=== PATIENT | male | born 1955 | race Caucasian/White ===

== ENCOUNTER 2022-08-09 00:51 | Inpatient (IN) ==
[2022-08-09 01:44] LABS: BASOPHILS % (AUTO) 0.1 % (0.0-3.0); EOSINOPHILS % (AUTO) 0.3 % (0.0-7.0); HEMATOCRIT 33.7 % (42.0-52.0); HEMOGLOBIN 10.5 g/dl (14.0-18.0); IMMATURE GRANULOCYTE # (AUTO) 0.1 (0.0-1.0); IMMATURE GRANULOCYTE % (AUTO) 0.6 % (0.0-5.0); LYMPHOCYTES # (AUTO) 1.2 K/uL (0.60-3.4); LYMPHOCYTES % (AUTO) 9.9 (10.0-50.0); MEAN CORPUSCULAR HEMOGLOBIN 29.6 pg (27.0-31.0); MEAN CORPUSCULAR HGB CONC 31.2 (31.8-35.4); MEAN CORPUSCULAR VOLUME 94.9 fl (80.0-94.0); MONOCYTES # (AUTO) 0.6 K/uL (0.4-2.0); MONOCYTES % (AUTO) 4.7 (0-10); NEUTROPHILS # (AUTO) 10.5 K/ul (2.0-6.9); NEUTROPHILS % (AUTO) 84.4 % (42.2-75.2); PLATELET COUNT 193 10^3/uL (140-440); RDW COEFFICIENT OF VARIATION 14.3 % (11.6-14.8); RED BLOOD COUNT 3.55 10^6/ul (4.70-6.10); WHITE BLOOD COUNT 12.49 K/ul (4.2-10.2)
[2022-08-09 01:54] LABS: ABG O2 HGB 94.9 % (95-100); COHb 3.1 (0.5-1.5); HCO3 41.2 (21-28); TCO2 42.6 (19-24); sO2 98.9 % (94-98); tHb 10.9 g/dl (11.7-17.4)
[2022-08-09 01:55] LABS: ABG PH 7.56 (7.35-7.45)
[2022-08-09 01:55] LABS: ALANINE AMINOTRANSFERASE 63.1 U/L (0-50); ALBUMIN 3.46 g/dL (3.5-5.0); ALKALINE PHOSPHATASE 68.6 U/L (56-119); ASPARTATE AMINO TRANSFERASE 44.3 U/L (17-59); BILIRUBIN,TOTAL 0.77 mg/dL (0.2-1.3); BLOOD UREA NITROGEN 27.8 mg/dL (9-20); CALCIUM 8.89 mg/dL (8.4-10.2); CARBON DIOXIDE 39.4 mmol/L (22-30.0); CHLORIDE 100.6 mmol/L (98-107); CREATINE KINASE 28.4 U/L (55-170); CREATININE 0.76 mg/dL (0.60-1.10); POTASSIUM 3.99 mmol/L (3.5-5.1); SODIUM 139.9 mmol/L (134.5-145); TOTAL PROTEIN 6.31 g/dL (6.3-8.2)
[2022-08-09 02:06] LABS: TROPONIN I 0.027 ng/ml (0.0000-0.120)
--- NOTE | 2022-08-09 02:46 | ED.PDOC ---
General ED Provider: Dr. AMANDA CORRAL Chief Complaint: Altered Mental Status Stated Complaint: Patient is a 67 year old male who has a history of stroke who was brought to the Er by EMS with acute mental status changes. He was seen at [facility] by [facility] two days ago and diagnosed with UTI started on antibiotics states he took his first dose today. He has a suprapubic catheter in place. The suprapubic catheter was changed 2 weeks ago. It is not draining a this time. Time Seen by Provider: 08/09/22 01:06 Mode of Arrival: Ambulance Information Source: Patient and EMT Primary Care Provider: ALYSSA ARIAS Nursing and Triage Documentation Reviewed and Agree: Yes Does patient meet sepsis criteria?: No System Inflammatory Response Syndrome: Not Applicable Sepsis Protocol: For patient's 13 years and over: Temp is 96.8 and below OR 101 and greater Pulse >90 BPM Resp >20/minute Acutely Altered Mental Status Are patient's symptoms suggestive of a new infection, such as: -Pneumonia -Skin, Soft Tissue -Endocarditis -UTI -Bone, Joint Infection -Implantable Device -Acute Abdominal Infection -Wound Infection -Meningitis -Blood Stream Catheter Infection -Unknown Review of Systems Review Of Systems Constitutional: Reports No symptoms Eyes: Reports No symptoms Ears, Nose, Mouth, Throat: Reports No symptoms Respiratory: Reports No symptoms Cardiac: Reports No symptoms GI: Reports No symptoms Neurological: Reports Anxiety All Other Systems: Reviewed and Negative [facility] Medical History (Updated 08/09/22 @ 05:00 by AMANDA CORRAL MD) Acute anxiety Acute UTI Aphasia as late effect of stroke COPD (chronic obstructive pulmonary disease) CVA (cerebral vascular accident) Falls HTN (hypertension) Hyperlipidemia Suprapubic catheter Social History (Updated 08/09/22 @ 04:59 by AMANDA CORRAL MD) Smoking and tobacco status: Current some day smoker Quit status: considering quitting Substance use type: does not use Household members: none Marital status: S SINGLE Physical Exam Physical Exam Appearance: Reports Ill-appearing and Thin Ill-appearing: Mild Pain Distress: None Eyes: Reports YARIEL, EOMI and Conjunctiva clear ENT: Reports Nose normal and Oropharynx normal Neck: Supple Respiratory: Reports Airway patent, Breath sounds clear and Breath sounds equal Cardiovascular: Reports RRR, Pulses normal and No rub GI/: Reports Soft, Bowel sounds normal and Other (Right inguinal hernia. ( states has been there for years) not strangulated. Suprapubic cathter in place without distension ) Musculoskeletal: Reports Normal strength and ROM intact Skin: Reports Warm and Dry Neurological: Reports Sensation intact, Motor intact, Alert, Oriented and Other (occaionally goes into tangents.) Psychiatric: Reports Anxious NIH Stroke Scale 1a. Level of Consciousness: 0=Alert and keenly responsive 1b. Level of Consciousness Questions: 0=Answers correctly to two questions 2. Best Gaze: 0=Normal 3. Visual: 0=No visual loss 4. Facial Palsy: 0=Normal 5a. Motor Left Arm: 0=No drift,arm holds 90 degrees for 10 sec., leg 30 degrees for 5 sec. 5b. Motor Right Arm: 0=No drift,arm holds 90 degrees for 10 sec., leg 30 degrees for 5 sec. 6a. Motor Left Le=No drift,arm holds 90 degrees for 10 sec., leg 30 degrees for 5 sec. 6b. Motor Right Le=No drift,arm holds 90 degrees for 10 sec., leg 30 degrees for 5 sec. 7. Limb Ataxia: 0=Absent 8. Sensory: 0=Normal 9. Best Language: 0=No aphasia 10. Dysarthria: 0=Normal 11. Extincion and Inattention: 0=Normal Stroke Scale Total: 0 Interpretation EKG Interpretation Time of EKG #1: 01:39 Rate: Normal Rhythm: Sinus Ectopy: None Kennedy: Right Interpretation: Pulmonary Disease pattern Procedures Additional Procedures Additional Procedures: Other (Supra Pubic catheter change) Progress: RN assisted Bedside Suprapubic Snowden catheter change. The suprapubic area was peeped with Betadine and the balloon deflated. The 18 F Snowden catheter was removed with some resistance. IT was noted to be twisted and irregular. Another catheter, also 18 F was inserted without difficulty and the balloon was inflated with 10mls of NS. There was blood tinged urine return. Patient Tolerated well. Critical Care Note Critical Care Note Total Critical Care Time (mins): 0 Course Course Hematology/Chemistry: 08/09/22 01:35 08/09/22 01:35 Orders, Labs, Meds: Lab Review 08/09/22 08/09/22 08/09/22 01:35 01:35 01:35 WBC 12.49 H RBC 3.55 L Hgb 10.5 L Hct 33.7 L MCV 94.9 H MCH 29.6 MCHC 31.2 L RDW Coeff of Joycelyn 14.3 Plt Count 193 Immature Gran % (Auto) 0.6 Neut % (Auto) 84.4 H Lymph % (Auto) 9.9 L [place] % (Auto) 4.7 Eos % (Auto) 0.3 Baso % (Auto) 0.1 Neut # (Auto) 10.5 H Lymph # (Auto) 1.2 [place] # (Auto) 0.6 Eos # (Auto) 0.0 Baso # (Auto) 0.0 Immature Gran # (Auto) 0.1 Puncture Site Base Excess O2 Saturation ABG pH ABG pCO2 ABG pO2 ABG HCO3 ABG Total CO2 Eliseo Test Hemoglobin Oxyhemoglobin Carboxyhemoglobin Total Hemoglobin O2 Delivery Device Oxygen Liter Flow FiO2 % Sodium Potassium Chloride Carbon Dioxide Anion Gap BUN Creatinine Estimated GFR (MDRD) BUN/Creatinine Ratio Glucose Lactic Acid 0.65 L Calcium Total Bilirubin AST ALT Alkaline Phosphatase Total Creatine Kinase Troponin I Total Protein Albumin Globulin Albumin/Globulin Ratio Procalcitonin < 0.05 Urine Color Urine Clarity Urine pH Ur Specific [place] Urine Protein Urine Glucose (UA) Urine Ketones Urine Blood Urine Nitrite Urine Bilirubin Urine Urobilinogen Ur Leukocyte Esterase Urine Microscopic RBC Urine Microscopic WBC Ur Squamous Epith Cells Urine Opiates Screen Ur Oxycodone Screen Urine Methadone Screen Ur Propoxyphene Screen Ur Barbiturates Screen U Tricyclic Antidepress Ur Phencyclidine Scrn Ur Amphetamine Screen U Methamphetamines Scrn U Benzodiazepines Scrn Urine Cocaine Screen U Cannabinoids Screen SARS CoV-2 RNA Rapid EDUARD 08/09/22 08/09/22 08/09/22 01:35 01:45 03:00 WBC RBC Hgb Hct MCV MCH MCHC RDW Coeff of Joycelyn Plt Count Immature Gran % (Auto) Neut % (Auto) Lymph % (Auto) [place] % (Auto) Eos % (Auto) Baso % (Auto) Neut # (Auto) Lymph # (Auto) [place] # (Auto) Eos # (Auto) Baso # (Auto) Immature Gran # (Auto) Puncture Site Rb Base Excess 19.0 H O2 Saturation 98.9 H ABG pH 7.56 H* ABG pCO2 46.0 H ABG pO2 110.0 H ABG HCO3 41.2 H ABG Total CO2 42.6 H Eliseo Test + Hemoglobin 1.0 Oxyhemoglobin 94.9 L Carboxyhemoglobin 3.1 H Total Hemoglobin 10.9 L O2 Delivery Device Cannula Oxygen Liter Flow 4.00 FiO2 % 36.0 Sodium 139.9 Potassium 3.99 Chloride 100.6 Carbon Dioxide 39.4 H Anion Gap 3.89 BUN 27.8 H Creatinine 0.76 Estimated GFR (MDRD) 102.00 BUN/Creatinine Ratio 36.57 Glucose 101.0 Lactic Acid Calcium 8.89 Total Bilirubin 0.77 AST 44.3 ALT 63.1 H Alkaline Phosphatase 68.6 Total Creatine Kinase 28.4 L Troponin I 0.027 Total Protein 6.31 Albumin 3.46 L Globulin 2.85 Albumin/Globulin Ratio 1.21 Procalcitonin Urine Color Red Urine Clarity Cloudy Urine pH 7.0 Ur Specific [place] 1.020 Urine Protein 2+ H Urine Glucose (UA) Negative Urine Ketones 1+ H Urine Blood 3+ H Urine Nitrite Negative Urine Bilirubin 1+ H Urine Urobilinogen 2.0 H Ur Leukocyte Esterase 3+ H Urine Microscopic RBC Tntc Urine Microscopic WBC Tntc Ur Squamous Epith Cells Not present Urine Opiates Screen Ur Oxycodone Screen Urine Methadone Screen Ur Propoxyphene Screen Ur Barbiturates Screen U Tricyclic Antidepress Ur Phencyclidine Scrn Ur Amphetamine Screen U Methamphetamines Scrn U Benzodiazepines Scrn Urine Cocaine Screen U Cannabinoids Screen SARS CoV-2 RNA Rapid EDUARD 08/09/22 08/09/22 03:00 03:00 WBC RBC Hgb Hct MCV MCH MCHC RDW Coeff of Joycelyn Plt Count Immature Gran % (Auto) Neut % (Auto) Lymph % (Auto) [place] % (Auto) Eos % (Auto) Baso % (Auto) Neut # (Auto) Lymph # (Auto) [place] # (Auto) Eos # (Auto) Baso # (Auto) Immature Gran # (Auto) Puncture Site Base Excess O2 Saturation ABG pH ABG pCO2 ABG pO2 ABG HCO3 ABG Total CO2 Eliseo Test Hemoglobin Oxyhemoglobin Carboxyhemoglobin Total Hemoglobin O2 Delivery Device Oxygen Liter Flow FiO2 % Sodium Potassium Chloride Carbon Dioxide Anion Gap BUN Creatinine Estimated GFR (MDRD) BUN/Creatinine Ratio Glucose Lactic Acid Calcium Total Bilirubin AST ALT Alkaline Phosphatase Total Creatine Kinase Troponin I Total Protein Albumin Globulin Albumin/Globulin Ratio Procalcitonin Urine Color Urine Clarity Urine pH Ur Specific [place] Urine Protein Urine Glucose (UA) Urine Ketones Urine Blood Urine Nitrite Urine Bilirubin Urine Urobilinogen Ur Leukocyte Esterase Urine Microscopic RBC Urine Microscopic WBC Ur Squamous Epith Cells Urine Opiates Screen Negative Ur Oxycodone Screen Negative Urine Methadone Screen Negative Ur Propoxyphene Screen Negative Ur Barbiturates Screen Negative U Tricyclic Antidepress Negative Ur Phencyclidine Scrn Negative Ur Amphetamine Screen Negative U Methamphetamines Scrn Negative U Benzodiazepines Scrn Positive H Urine Cocaine Screen Negative U Cannabinoids Screen Negative SARS CoV-2 RNA Rapid EDUARD Negative Orders Category Date Time Status ABG DRAW REQUEST Stat CARDIO 08/09/22 01:09 Completed EKG-(ED ONLY) Stat CARDIO 08/09/22 01:10 Completed ED APPLY O2 .ONCE EMERGENCY 08/09/22 01:06 Active ED LAYDOWN MACHINE OPERATOR APPLIED .ONCE EMERGENCY 08/09/22 01:06 Active ED VITAL SIGNS Q4HR EMERGENCY 08/09/22 01:06 Active ABG COOX Stat LAB 08/09/22 01:45 Completed BLOOD CULTURE (ED ONLY) Stat LAB 08/09/22 01:35 Received CBC W/ AUTO DIFF Stat LAB 08/09/22 01:35 Completed COMPREHENSIVE METABOLIC PANEL Stat LAB 08/09/22 01:35 Completed CPK [CREATINE KINASE] Stat LAB 08/09/22 01:35 Completed LACTIC ACID Stat LAB 08/09/22 01:35 Completed PROCALCITONIN Stat LAB 08/09/22 01:35 Completed SARS COV-2 RNA RAPID EDUARD Stat LAB 08/09/22 03:00 Completed TROPONIN I Stat LAB 08/09/22 01:35 Completed URINALYSIS C & S IF INDICATED Stat LAB 08/09/22 03:00 Completed URINE CULTURE Stat LAB 08/09/22 03:00 Received Ceftriaxone/D5w 1 gm Premix [Rocephin 1 gm/50 ml D5w] MEDS 08/09/22 03:20 Discontinued 1 gm in 50 ml IV ONCE Sodium Chloride 0.9% [Sodium Chloride] 1,000 ml MEDS 08/09/22 03:21 Discontinued IV BOLUS CHEST, 1V AP ONLY Stat RADS 08/09/22 01:[address] HEAD W/O CONTRAST Stat RADS 08/09/22 01:06 Taken Medications Generic Name Dose Route Start Last Admin Trade Name Freq PRN Reason Stop Dose Admin Acetaminophen 650 mg 08/09/22 04:09 Acetaminophen 325 Mg Tablet PO Q4H PRN Fever and Mild Pain Albuterol/Ipratropium 3 ml 08/09/22 04:22 Ipratropium/Albuterol Vial.Neb NEB RTQ6H PRN Wheezing Alprazolam 0.25 mg 08/09/22 04:22 Alprazolam 0.25 Mg Tablet PO BID PRN Anxiety Fluticasone Propionate 1 puff 08/09/22 09:00 Fluticasone Propionate 220 Mcg Inh IH BID MITZI Sodium Chloride 1,000 mls @ 150 mls/hr 08/09/22 04:30 08/09/22 04:24 Sodium Chloride IV 150 mls/hr .Q6H40M MITZI Administration CEFTRIAXONE/D5W 1 GM PREMIX 1 gm in 50 mls @ 75 mls/hr 08/09/22 09:00 Rocephin 1 Gm/50 Ml D5w IV 08/12/22 08:59 DAILY MITZI Ondansetron HCl 4 mg 08/09/22 04:09 Ondansetron Hcl/Pf 4 Mg/2 Ml Sdv IVP Q6H PRN Nausea / Vomiting Discontinued Medications Generic Name Dose Route Start Last Admin Trade Name Freq PRN Reason Stop Dose Admin CEFTRIAXONE/D5W 1 GM PREMIX 1 gm in 50 mls @ 75 mls/hr 08/09/22 03:20 08/09/22 03:28 Rocephin 1 Gm/50 Ml D5w IV 08/09/22 03:59 75 mls/hr ONCE ONE Administration Sodium Chloride 1,000 mls @ 1,000 mls/hr 08/09/22 03:21 08/09/22 03:28 Sodium Chloride IV 08/09/22 04:20 1,000 mls/hr BOLUS STA Administration Vital Signs: Temp Pulse Resp BP Pulse Ox 08/09/22 02:12 146/94 H 08/09/22 00:52 96.9 F L 94 20 154/97 H 99 Discharge Plan Discharge Patient Disposition: ADMITTED INPATIENT Discharge Problem: Urinary tract infection in elderly patient, Altered mental status Suprapubic catheter dysfunction Qualifiers: Encounter type: initial encounter Qualified Code(s): T83.010A - Breakdown (mechanical) of cystostomy catheter, initial encounter Obstructed suprapubic catheter Qualifiers: Encounter type: initial encounter Qualified Code(s): T83.090A - Other mechanical complication of cystostomy catheter, initial encounter Did you review [place] OFFICE ADMINISTRATOR?: Not Applicable ED Provider: AMANDA CORRAL Condition: Fair Physician Progress Note: []
[2022-08-09 03:10] LABS: BILIRUBIN,URINE 1+ (NEGATIVE); CLARITY,URINE Cloudy (CLEAR); COLOR,URINE Red (YELLOW); GLUCOSE, URINE (UA) Negative (NEGATIVE); KETONES,URINE 1+ (NEGATIVE); LEUKOCYTE ESTERASE ,URINE 3+ (NEGATIVE); NITRITE,URINE Negative (NEGATIVE); PROTEIN,URINE 2+ (NEGATIVE); URINE, BLOOD 3+ (NEGATIVE)
[2022-08-09 03:18] LABS: SQUAMOUS EPITHELIAL CELL,UR NOT PRESENT (0-5); URINE RBC, MICROSCOPIC TNTC (0-2); URINE WBC, MICROSCOPIC TNTC (0-2)
[2022-08-09] MEDS ORDERED: ROCEPHIN 1 GM/50 ML D5W 1 GM/50 ML BAG IV ONE (03:20)
[2022-08-09] MEDS ORDERED: SODIUM CHLORIDE 1,000 ML IV STA (03:21)
[2022-08-09 03:38] LABS: SARS COV-2 RNA RAPID NAAT NEGATIVE (NEGATIVE)
[2022-08-09] MEDS ORDERED: TYLENOL PO PRN (04:09)
[2022-08-09] MEDS ORDERED: ZOFRAN 4 MG/2 ML IVP PRN (04:09)
[2022-08-09 04:11] LABS: BENZODIAZEPINES SCREEN,URINE POSITIVE (NEGATIVE); CANNABINOID SCREEN,URINE NEGATIVE (NEGATIVE); COCAIN SCREEN,URINE NEGATIVE (NEGATIVE); METHADONE URINE SCREEN NEGATIVE (NEGATIVE); METHAMPHETAMINES SCREEN,URINE NEGATIVE (NEGATIVE); OXYCODONE URINE SCREEN NEGATIVE (NEGATIVE); PROPOXYPHENE URINE SCREEN NEGATIVE (NEGATIVE); TRICYCLIC ANTIDEPRESSANTS URIN NEGATIVE (NEGATIVE)
[2022-08-09 04:12] LABS: AMPHETAMINE SCREEN,URINE NEGATIVE (NEGATIVE); BARBITURATE SCREEN,URINE NEGATIVE (NEGATIVE); OPIATE SCREEN,URINE NEGATIVE (NEGATIVE); PHENCYCLIDINE SCREEN,URINE NEGATIVE (NEGATIVE)
[2022-08-09] MEDS ORDERED: XANAX PO PRN (04:22)
[2022-08-09] MEDS: SODIUM CHLORIDE 1,000 ML IV SCH ×3 (04:24→20:50)
[2022-08-09 04:40] VITALS: BMI 17.0
[2022-08-09] MEDS ORDERED: HYDRALAZINE HCL IVP PRN ×2 (08:22→11:30)
--- NOTE | 2022-08-09 08:30 | PCM.PROG ---
Date Seen by Provider: 08/09/22 Time Seen by Provider: 08:27 Subjective: dx. altered mental status, uti pt stable, alert, speech fluent Objective: Vitals: T=97.1 F, P=101, R=16, NT=225/102, SPO2=97 HEENT: []conjunctiva clear Neck: []supple Lungs: [] clear CVS: []rrr Abdomen: []nondistended Extremities: []warm and dry Neurological: []alert Skin: []pink Lab/Tests/Diagnostic Imaging: [] wbc 12.4, ekg nsr, troponin wnl, cxr nap and head ct no bleed per Rad Plan: iv rocephin care to Dr Hamm at 19:00
--- NOTE | 2022-08-09 08:37 | DI ---
EXAM: Portable chest HISTORY: Altered mental status COMPARISON: Single-view chest 06/20/2021 FINDINGS: Stable cardiomediastinal silhouette. The lungs are hyperinflated. There is left-sided lo op recorder device. IMPRESSION: Stable emphysematous changes.
--- NOTE | 2022-08-09 08:37 | CT ---
EXAM: CT scan brain without contrast HISTORY: Altered mental status COMPARISON: CT scan brain 06/20/2021 FINDINGS: Helically acquired axial images obtained from skull base to the convexities without contra st utilizing 5 meters collimation. Sagittal and coronal reconstructions were imaged and reviewed.. The ventricles and CSF spaces are prominent compatible with age appropriate atrophy. There is perive ntricular hypodensity noted compatible with chronic microvascular disease. Encephalomalacia is seen within the left frontal lobe. Atherosclerotic changes are seen involving cavernous internal carotid arteries. The visualized paranasal sinuses and mastoid air cells are clear. The calvarium is intact . IMPRESSION: No acute intracranial findings. All CT scans are performed using dose optimization techniques as appropriate to the performed exam an d include at least one of the following: Automated exposure control, adjustment of the mA and/or kV according t o size, and the use of iterative reconstruction technique.
[2022-08-09] MEDS ORDERED: FLOVENT HFA 220 MCG IH SCH (09:00)
[2022-08-09] MEDS ORDERED: VENTOLIN HFA (PER PUFF-WITH SPACER) IH PRN (11:23)
[2022-08-09] MEDS: DUONEB NEB PRN (11:42)
[2022-08-09] MEDS: SOLU-MEDROL 40 MG IVP SCH ×2 (13:27→18:03)
[2022-08-09] MEDS: ASPIRIN CHEWABLE PO SCH (13:28)
[2022-08-09] MEDS: PLAVIX PO SCH (13:28)
[2022-08-09] MEDS: NON-FORMULARY MEDICATION (Fluticasone-Umeclidin-Vilanter [Trelegy Ellipta] 100-62.5-25 mcg IH SCH (13:29)
[2022-08-09] MEDS: BUSPAR PO SCH ×2 (14:30→20:39)
[2022-08-09] MEDS: ROCEPHIN 1 GM/50 ML D5W 1 GM/50 ML BAG IV SCH (20:39)
[2022-08-10] MEDS: SOLU-MEDROL 40 MG IVP SCH ×2 (00:21→05:38)
[2022-08-10] MEDS: SODIUM CHLORIDE 1,000 ML IV SCH (03:20)
[2022-08-10 04:43] LABS: BASOPHILS % (AUTO) 0.1 % (0.0-3.0); HEMATOCRIT 29.5 % (42.0-52.0); HEMOGLOBIN 9.1 g/dl (14.0-18.0); IMMATURE GRANULOCYTE # (AUTO) 0.1 (0.0-1.0); IMMATURE GRANULOCYTE % (AUTO) 0.6 % (0.0-5.0); LYMPHOCYTES # (AUTO) 0.6 K/uL (0.60-3.4); LYMPHOCYTES % (AUTO) 6.9 (10.0-50.0); MEAN CORPUSCULAR HEMOGLOBIN 29.4 pg (27.0-31.0); MEAN CORPUSCULAR HGB CONC 30.8 (31.8-35.4); MEAN CORPUSCULAR VOLUME 95.5 fl (80.0-94.0); MONOCYTES # (AUTO) 0.1 K/uL (0.4-2.0); MONOCYTES % (AUTO) 0.9 (0-10); NEUTROPHILS # (AUTO) 7.5 K/ul (2.0-6.9); NEUTROPHILS % (AUTO) 91.5 % (42.2-75.2); PLATELET COUNT 157 10^3/uL (140-440); RDW COEFFICIENT OF VARIATION 14.6 % (11.6-14.8); RED BLOOD COUNT 3.09 10^6/ul (4.70-6.10); WHITE BLOOD COUNT 8.22 K/ul (4.2-10.2)
[2022-08-10 04:57] LABS: BLOOD UREA NITROGEN 26.3 mg/dL (9-20); CALCIUM 8.31 mg/dL (8.4-10.2); CARBON DIOXIDE 35.3 mmol/L (22-30.0); CHLORIDE 105.6 mmol/L (98-107); CREATININE 0.72 mg/dL (0.60-1.10); GLUCOSE 138.9 mg/dL (74-106); POTASSIUM 4.58 mmol/L (3.5-5.1); SODIUM 140.4 mmol/L (134.5-145)
[2022-08-10] MEDS: XANAX PO PRN ×2 (09:11→20:25)
[2022-08-10] MEDS: BUSPAR PO SCH ×3 (09:14→20:24)
[2022-08-10] MEDS: LIPITOR PO SCH (09:16)
[2022-08-10] MEDS: PLAVIX PO SCH (09:17)
[2022-08-10] MEDS: ASPIRIN CHEWABLE PO SCH (09:17)
[2022-08-10] MEDS: NON-FORMULARY MEDICATION (Fluticasone-Umeclidin-Vilanter [Trelegy Ellipta] 100-62.5-25 mcg IH SCH (09:19)
[2022-08-10] MEDS: COLACE PO SCH ×2 (16:51→20:25)
[2022-08-10] MEDS: DUONEB NEB PRN (20:00)
[2022-08-10] MEDS: ROCEPHIN 1 GM/50 ML D5W 1 GM/50 ML BAG IV SCH (20:25)
[2022-08-11] MEDS: LIPITOR PO SCH (10:01)
[2022-08-11] MEDS: BUSPAR PO SCH (10:02)
[2022-08-11] MEDS: ASPIRIN CHEWABLE PO SCH (10:04)
[2022-08-11] MEDS: COLACE PO SCH (10:04)
[2022-08-11] MEDS: PLAVIX PO SCH (10:04)
[2022-08-11] MEDS: NON-FORMULARY MEDICATION (Fluticasone-Umeclidin-Vilanter [Trelegy Ellipta] 100-62.5-25 mcg IH SCH (10:05)
[2022-08-11 10:22] VITALS: BP 129/76; TEMP 98
--- NOTE | 2022-08-15 16:07 | PCM.DC ---
Final Diagnosis: Altered mental status - resolved. Malfunctioning suprapubic bladder catheter - resolved. Date of admit 08/09/22 Date of discharge 08/11/22 Physical Exam Appearance: Well-appearing Ill-appearing: None Pain Distress: None Eyes: YARIEL ENT: Oropharynx normal Neck: Supple Respiratory: Airway patent and Breath sounds clear Cardiovascular: RRR and Pulses normal GI/: Soft, Nontender and Other (suprapubic catheter in place, draining.) Musculoskeletal: Normal strength and ROM intact Skin: Warm and Dry Neurological: Sensation intact, Motor intact and Alert Psychiatric: Affect appropriate and Mood appropriate (1) Altered mental status: Status: Acute Code(s): R41.82 - Altered mental status, unspecified SNOMED Code(s): 062468562 (2) Suprapubic catheter dysfunction: Status: Acute Code(s): T83.010A - Breakdown (mechanical) of cystostomy catheter, initial encounter SNOMED Code(s): 101421714 Qualifiers: Encounter type: initial encounter Qualified Code(s): T83.010A - Breakdown (mechanical) of cystostomy catheter, initial encounter Reason for Hospitalization: Admitted with confusion and suprapubic catheter not draining properly. Prognosis/Condition at Discharge: Good, stable, to [facility]. Medications at Discharge: Medications at Discharge (Home Meds & RX) albuterol sulfate 90 mcg/actuation aerosol inhaler 1 inh inhalation BID PRN Shortness Of Breath 06/20/21 atorvastatin 80 mg tablet 80 mg PO DAILY 06/20/21 buspirone 5 mg tablet 5 mg PO TID 06/20/21 fluticasone fur. 100 mcg-umeclid 62.5 mcg-vilant 25 mcg inhalat.powder (Trelegy Ellipta) 1 inh inhalation DAILY 06/20/21 ipratropium 0.5 mg-albuterol 3 mg (2.5 mg base)/3 mL nebulization soln 3 ml inhalation QID 06/20/21 aspirin 81 mg chewable tablet 81 mg PO DAILY 08/09/22 clopidogrel 75 mg tablet (Plavix) 75 mg PO DAILY 08/09/22 fludrocortisone 0.1 mg tablet 0.1 mg PO DAILY 08/09/22 midodrine 10 mg tablet 10 mg PO TID 08/09/22 alprazolam 0.25 mg tablet 0.25 mg PO BID PRN Anxiety #60 tabs 08/11/22 Lab/Diagnostics: Laboratory Tests 08/09/22 08/09/22 08/09/22 01:35 01:35 01:35 WBC 12.49 H RBC 3.55 L Hgb 10.5 L Hct 33.7 L MCV 94.9 H MCH 29.6 MCHC 31.2 L RDW Coeff of Joycelyn 14.3 Plt Count 193 Immature Gran % (Auto) 0.6 Neut % (Auto) 84.4 H Lymph % (Auto) 9.9 L [place] % (Auto) 4.7 Eos % (Auto) 0.3 Baso % (Auto) 0.1 Neut # (Auto) 10.5 H Lymph # (Auto) 1.2 [place] # (Auto) 0.6 Eos # (Auto) 0.0 Baso # (Auto) 0.0 Immature Gran # (Auto) 0.1 Puncture Site Base Excess O2 Saturation ABG pH ABG pCO2 ABG pO2 ABG HCO3 ABG Total CO2 Eliseo Test Hemoglobin Oxyhemoglobin Carboxyhemoglobin Total Hemoglobin O2 Delivery Device Oxygen Liter Flow FiO2 % Sodium Potassium Chloride Carbon Dioxide Anion Gap BUN Creatinine Estimated GFR (MDRD) BUN/Creatinine Ratio Glucose Lactic Acid 0.65 L Calcium Total Bilirubin AST ALT Alkaline Phosphatase Total Creatine Kinase Troponin I Total Protein Albumin Globulin Albumin/Globulin Ratio Procalcitonin < 0.05 Urine Color Urine Clarity Urine pH Ur Specific [place] Urine Protein Urine Glucose (UA) Urine Ketones Urine Blood Urine Nitrite Urine Bilirubin Urine Urobilinogen Ur Leukocyte Esterase Urine Microscopic RBC Urine Microscopic WBC Ur Squamous Epith Cells Urine Opiates Screen Ur Oxycodone Screen Urine Methadone Screen Ur Propoxyphene Screen Ur Barbiturates Screen U Tricyclic Antidepress Ur Phencyclidine Scrn Ur Amphetamine Screen U Methamphetamines Scrn U Benzodiazepines Scrn Urine Cocaine Screen U Cannabinoids Screen SARS CoV-2 RNA Rapid EDUARD 08/09/22 08/09/22 08/09/22 01:35 01:45 03:00 WBC RBC Hgb Hct MCV MCH MCHC RDW Coeff of Joycelyn Plt Count Immature Gran % (Auto) Neut % (Auto) Lymph % (Auto) [place] % (Auto) Eos % (Auto) Baso % (Auto) Neut # (Auto) Lymph # (Auto) [place] # (Auto) Eos # (Auto) Baso # (Auto) Immature Gran # (Auto) Puncture Site Rb Base Excess 19.0 H O2 Saturation 98.9 H ABG pH 7.56 H* ABG pCO2 46.0 H ABG pO2 110.0 H ABG HCO3 41.2 H ABG Total CO2 42.6 H Eliseo Test + Hemoglobin 1.0 Oxyhemoglobin 94.9 L Carboxyhemoglobin 3.1 H Total Hemoglobin 10.9 L O2 Delivery Device Cannula Oxygen Liter Flow 4.00 FiO2 % 36.0 Sodium 139.9 Potassium 3.99 Chloride 100.6 Carbon Dioxide 39.4 H Anion Gap 3.89 BUN 27.8 H Creatinine 0.76 Estimated GFR (MDRD) 102.00 BUN/Creatinine Ratio 36.57 Glucose 101.0 Lactic Acid Calcium 8.89 Total Bilirubin 0.77 AST 44.3 ALT 63.1 H Alkaline Phosphatase 68.6 Total Creatine Kinase 28.4 L Troponin I 0.027 Total Protein 6.31 Albumin 3.46 L Globulin 2.85 Albumin/Globulin Ratio 1.21 Procalcitonin Urine Color Red Urine Clarity Cloudy Urine pH 7.0 Ur Specific [place] 1.020 Urine Protein 2+ H Urine Glucose (UA) Negative Urine Ketones 1+ H Urine Blood 3+ H Urine Nitrite Negative Urine Bilirubin 1+ H Urine Urobilinogen 2.0 H Ur Leukocyte Esterase 3+ H Urine Microscopic RBC Tntc Urine Microscopic WBC Tntc Ur Squamous Epith Cells Not present Urine Opiates Screen Ur Oxycodone Screen Urine Methadone Screen Ur Propoxyphene Screen Ur Barbiturates Screen U Tricyclic Antidepress Ur Phencyclidine Scrn Ur Amphetamine Screen U Methamphetamines Scrn U Benzodiazepines Scrn Urine Cocaine Screen U Cannabinoids Screen SARS CoV-2 RNA Rapid EDUARD 08/09/22 08/09/22 08/10/22 03:00 03:00 04:30 WBC 8.22 RBC 3.09 L Hgb 9.1 L Hct 29.5 L MCV 95.5 H MCH 29.4 MCHC 30.8 L RDW Coeff of Joycelyn 14.6 Plt Count 157 Immature Gran % (Auto) 0.6 Neut % (Auto) 91.5 H Lymph % (Auto) 6.9 L [place] % (Auto) 0.9 Eos % (Auto) 0.0 Baso % (Auto) 0.1 Neut # (Auto) 7.5 H Lymph # (Auto) 0.6 [place] # (Auto) 0.1 L Eos # (Auto) 0.0 Baso # (Auto) 0.0 Immature Gran # (Auto) 0.1 Puncture Site Base Excess O2 Saturation ABG pH ABG pCO2 ABG pO2 ABG HCO3 ABG Total CO2 Eliseo Test Hemoglobin Oxyhemoglobin Carboxyhemoglobin Total Hemoglobin O2 Delivery Device Oxygen Liter Flow FiO2 % Sodium Potassium Chloride Carbon Dioxide Anion Gap BUN Creatinine Estimated GFR (MDRD) BUN/Creatinine Ratio Glucose Lactic Acid Calcium Total Bilirubin AST ALT Alkaline Phosphatase Total Creatine Kinase Troponin I Total Protein Albumin Globulin Albumin/Globulin Ratio Procalcitonin Urine Color Urine Clarity Urine pH Ur Specific [place] Urine Protein Urine Glucose (UA) Urine Ketones Urine Blood Urine Nitrite Urine Bilirubin Urine Urobilinogen Ur Leukocyte Esterase Urine Microscopic RBC Urine Microscopic WBC Ur Squamous Epith Cells Urine Opiates Screen Negative Ur Oxycodone Screen Negative Urine Methadone Screen Negative Ur Propoxyphene Screen Negative Ur Barbiturates Screen Negative U Tricyclic Antidepress Negative Ur Phencyclidine Scrn Negative Ur Amphetamine Screen Negative U Methamphetamines Scrn Negative U Benzodiazepines Scrn Positive H Urine Cocaine Screen Negative U Cannabinoids Screen Negative SARS CoV-2 RNA Rapid EDUARD Negative 08/10/22 04:30 WBC RBC Hgb Hct MCV MCH MCHC RDW Coeff of Joycelyn Plt Count Immature Gran % (Auto) Neut % (Auto) Lymph % (Auto) [place] % (Auto) Eos % (Auto) Baso % (Auto) Neut # (Auto) Lymph # (Auto) [place] # (Auto) Eos # (Auto) Baso # (Auto) Immature Gran # (Auto) Puncture Site Base Excess O2 Saturation ABG pH ABG pCO2 ABG pO2 ABG HCO3 ABG Total CO2 Eliseo Test Hemoglobin Oxyhemoglobin Carboxyhemoglobin Total Hemoglobin O2 Delivery Device Oxygen Liter Flow FiO2 % Sodium 140.4 Potassium 4.58 Chloride 105.6 Carbon Dioxide 35.3 H Anion Gap 4.08 BUN 26.3 H Creatinine 0.72 Estimated GFR (MDRD) 109.00 BUN/Creatinine Ratio 36.52 Glucose 138.9 H Lactic Acid Calcium 8.31 L Total Bilirubin AST ALT Alkaline Phosphatase Total Creatine Kinase Troponin I Total Protein Albumin Globulin Albumin/Globulin Ratio Procalcitonin Urine Color Urine Clarity Urine pH Ur Specific [place] Urine Protein Urine Glucose (UA) Urine Ketones Urine Blood Urine Nitrite Urine Bilirubin Urine Urobilinogen Ur Leukocyte Esterase Urine Microscopic RBC Urine Microscopic WBC Ur Squamous Epith Cells Urine Opiates Screen Ur Oxycodone Screen Urine Methadone Screen Ur Propoxyphene Screen Ur Barbiturates Screen U Tricyclic Antidepress Ur Phencyclidine Scrn Ur Amphetamine Screen U Methamphetamines Scrn U Benzodiazepines Scrn Urine Cocaine Screen U Cannabinoids Screen SARS CoV-2 RNA Rapid EDUARD Education Provided to Patient and Family: Per RN Follow-ups: To [facility] Discharge Disposition: [facility] Hospital Course: Altered mental status resolved without clear etiology. Suprapubic catheter changed, functioning properly, urine culture not growing pathogen at time of transfer. Plan: To [facility]. This discharge done with a [id number] exam and documentation entailing 30 minutes.
== END 2022-08-11 12:50 | DRG 948 ==
LOC: ED 00:51 → MEDSURG A 03:47
PROVIDERS: ADMIT Internal Medicine Geriatric Medicine; ATTEND Emergency Medicine
DX: Z51.81 Encounter for therapeutic drug level monitoring; R41.82 Altered mental status, unspecified; N39.0 Urinary tract infection, site not specified; Z79.899 Other long term (current) drug therapy; Z20.822 Contact with and (suspected) exposure to COVID-19; T83.010A Breakdown (mechanical) of cystostomy catheter, initial encounter; T83.090A Other mechanical complication of cystostomy catheter, initial encounter

== ENCOUNTER 2023-11-25 18:43 | Inpatient (IN) ==
[2023-11-25 19:46] LABS: BASOPHILS % (AUTO) 0.3 % (0.0-3.0); EOSINOPHILS % (AUTO) 0.1 % (0.0-7.0); HEMATOCRIT 26.1 % (42.0-52.0); HEMOGLOBIN 7.9 g/dl (14.0-18.0); IMMATURE GRANULOCYTE % (AUTO) 0.1 % (0.0-5.0); LYMPHOCYTES # (AUTO) 0.7 K/uL (0.60-3.4); LYMPHOCYTES % (AUTO) 9.9 (10.0-50.0); MEAN CORPUSCULAR HEMOGLOBIN 32.1 pg (27.0-31.0); MEAN CORPUSCULAR HGB CONC 30.3 (31.8-35.4); MEAN CORPUSCULAR VOLUME 106.1 fl (80.0-94.0); MONOCYTES # (AUTO) 0.4 K/uL (0.4-2.0); NEUTROPHILS # (AUTO) 5.8 K/ul (2.0-6.9); NEUTROPHILS % (AUTO) 83.6 % (42.2-75.2); PLATELET COUNT 137 10^3/uL (140-440); RED BLOOD COUNT 2.46 10^6/ul (4.70-6.10); WHITE BLOOD COUNT 6.99 K/ul (4.2-10.2)
--- NOTE | 2023-11-25 19:54 | DI ---
EXAM: FRONTAL VIEW OF THE CHEST. HISTORY: Cough. COMPARISON: Chest radiograph 08/09/2022. FINDINGS: Cardiac loop recorder projects over the left chest. Septal closure device noted at the heart. Normal heart size. Atherosclerotic calcifications of the aorta. Hyperexpanded lungs. Patchy opacities at the left base. No visible pleural effusion or pneumothorax. Diffuse osseous demineralization. Mild scoliosis. Degenerative changes of the shoulders. IMPRESSION: Left basilar opacities concerning for pneumonia. Emphysema.
[2023-11-25 19:57] LABS: ALANINE AMINOTRANSFERASE 130.3 U/L (0-50); ALBUMIN 3.52 g/dL (3.5-5.0); ALKALINE PHOSPHATASE 86.4 U/L (56-119); ASPARTATE AMINO TRANSFERASE 132.4 U/L (17-59); BILIRUBIN,TOTAL 0.48 mg/dL (0.2-1.3); CALCIUM 9.41 mg/dL (8.4-10.2); CARBON DIOXIDE 39.7 mmol/L (22-30.0); CHLORIDE 101.6 mmol/L (98-107); CREATININE 1.34 mg/dL (0.60-1.10); GLUCOSE 116.3 mg/dL (74-106); POTASSIUM 4.7 mmol/L (3.5-5.1); SODIUM 142.4 mmol/L (134.5-145); TOTAL PROTEIN 6.01 g/dL (6.3-8.2)
[2023-11-25 20:43] LABS: BILIRUBIN,URINE Negative (NEGATIVE); CLARITY,URINE Cloudy (CLEAR); COLOR,URINE Yellow (YELLOW); GLUCOSE, URINE (UA) Negative (NEGATIVE); KETONES,URINE Negative (NEGATIVE); LEUKOCYTE ESTERASE ,URINE 1+ (NEGATIVE); NITRITE,URINE Negative (NEGATIVE); PROTEIN,URINE 1+ (NEGATIVE); URINE, BLOOD 1+ (NEGATIVE)
[2023-11-25 20:59] LABS: URINE RBC, MICROSCOPIC 20-30 (0-2); URINE WBC, MICROSCOPIC 50-100 (0-2)
[2023-11-25 21:00] LABS: BACTERIA,URINE 1+ (NOT PRESENT); URIC ACID CRYSTALS,URINE 3+ (NOT PRESENT)
--- NOTE | 2023-11-25 21:16 | ED.PDOC ---
General ED Provider: Dr. MIGNON BEST MD Chief Complaint: Elbow Pain/Injury Stated Complaint: 68 years old male with history of COPD on 2.5 L home oxygen coming to the emergency room for fall. This is his third ER visit for this patient within the last week as well as another 3 called for paramedics for lift assist due to frequent falls patient fell today landing on his right elbow and was brought into the ER for evaluation. Patient has chronic suprapubic catheter for urinary obstruction for the last 5 years. No head trauma, patient is complaining of some shortness of breath but he is satting at 95 and 2.5 L which is baseline. He is taking oral antibiotics but unknown if he is compliant with the medications are now patient lives by himself has home health aide 5 days a week sometimes comes 7 days a week balance has been off lately with frequent falls brother at bedside concerned about the frequent falls and the patient not able to manage and ambulate her essential daily activities at home. Time Seen by Provider: 11/25/23 18:44 Information Source: Patient and Family Primary Care Provider: APARNA RENEE Nursing and Triage Documentation Reviewed and Agree: Yes What is Opioid Naive?: *Opioid Naive implies the patient is not already taking opioids or not chronically receiving opioids on a daily basis. *PRN dosing is not "usually" associated with tolerance. *Patients are at higher risk of over-sedation and aspiration. What is Opioid Tolerant?: *Opioid Tolerance implies less than the expected response to an opioid. *Acquired tolerance is defined by the patient taking 60mg of oral morphine daily (or equianalgesic dose of another opioid) for 1 week or more. *Often associated with chronic pain. *May take more than usual dose to achieve desired pain control. Review of Systems Review Of Systems Constitutional: Reports Weakness [facility] Medical History Emphysema of lung J43.9 - Emphysema, unspecified (ICD-10) Aphasia as late effect of stroke I69.320 - Aphasia following cerebral infarction (ICD-10) HTN (hypertension) I10 - Essential (primary) hypertension (ICD-10) COPD (chronic obstructive pulmonary disease) J44.9 - Chronic obstructive pulmonary disease, unspecified (ICD-10) CVA (cerebral vascular accident) I63.9 - Cerebral infarction, unspecified (ICD-10) Hyperlipidemia E78.5 - Hyperlipidemia, unspecified (ICD-10) Acute anxiety F41.9 - Anxiety disorder, unspecified (ICD-10) Suprapubic catheter Z93.59 - Other cystostomy status (ICD-10) Acute UTI N39.0 - Urinary tract infection, site not specified (ICD-10) Falls W19.XXXA - Unspecified fall, initial encounter (ICD-10) Social History Smoking and tobacco status: Current every day smoker Tobacco type: cigarettes Smoking cigarettes per day: 8 Quit status: considering quitting Substance use type: does not use Household members: none Marital status: S SINGLE Physical Exam Physical Exam Appearance: Reports Thin and Cachectic Ill-appearing: Mild Pain Distress: None Eyes: Reports YARIEL Respiratory: Reports Breath sounds diminished and Wheezes (Bilateral scattered) Cardiovascular: Reports Pulses normal, No rub and No murmur GI/: Reports Soft, Nontender and No masses Musculoskeletal: Reports Normal strength Skin: Reports Other (Multiple bruises on bilateral upper extremities minor skin laceration superficial both upper extremities) Neurological: Reports Sensation intact and Cranial nerves intact Psychiatric: Reports Affect appropriate Course Course 11/25/23 19:36 11/25/23 19:36 Orders, Labs, Meds: Lab Review 11/25/23 11/25/23 11/25/23 19:36 20:24 21:15 WBC 6.99 RBC 2.46 L Hgb 7.9 L Hct 26.1 L MCV 106.1 H MCH 32.1 H MCHC 30.3 L RDW Coeff of Joycelyn 16.0 H Plt Count 137 L Immature Gran % (Auto) 0.1 Neut % (Auto) 83.6 H Lymph % (Auto) 9.9 L [place] % (Auto) 6.0 Eos % (Auto) 0.1 Baso % (Auto) 0.3 Neut # (Auto) 5.8 Lymph # (Auto) 0.7 [place] # (Auto) 0.4 Eos # (Auto) 0.0 Baso # (Auto) 0.0 Immature Gran # (Auto) 0.0 Sodium 142.4 Potassium 4.70 Chloride 101.6 Carbon Dioxide 39.7 H Anion Gap 5.80 BUN 24.0 H Creatinine 1.34 H Estimated GFR (MDRD) 53.00 BUN/Creatinine Ratio 17.91 Glucose 116.3 H Lactic Acid 2.16 H Calcium 9.41 Total Bilirubin 0.48 AST 132.4 H ALT 130.3 H Alkaline Phosphatase 86.4 Total Protein 6.01 L Albumin 3.52 Globulin 2.49 Albumin/Globulin Ratio 1.41 Urine Color Yellow Urine Clarity Cloudy Urine pH 6.0 Ur Specific [place] >=1.030 Urine Protein 1+ H Urine Glucose (UA) Negative Urine Ketones Negative Urine Blood 1+ H Urine Nitrite Negative Urine Bilirubin Negative Urine Urobilinogen 1.0 H Ur Leukocyte Esterase 1+ H Urine Microscopic RBC 20-30 Urine Microscopic WBC 50-100 Ur Squamous Epith Cells Not Reportable Uric Acid Crystals 3+ Urine Bacteria 1+ SARS CoV-2 RNA Rapid EDUARD Negative Orders Category Date Time Status ADMIT PATIENT INPATIENT .TO [facility] (MONITORED BED) ADMISSION 11/25/23 21:41 Active ADMIT PATIENT INPATIENT .TO [facility] (MONITORED BED) ADMISSION 11/25/23 21:49 Active OXYGEN Routine CARDIO 11/25/23 21:42 Ordered ACTIVITY .Up With Assistance CARE 11/25/23 21:41 Active INTAKE & OUTPUT Q8HR CARE 11/25/23 21:41 Active TELEMETRY MONITORING TELE CARE 11/25/23 21:41 Active TELEMETRY MONITORING TELE CARE 11/25/23 21:49 Active VITAL SIGNS Q4HR CARE 11/25/23 21:42 Active CARDIAC DIET DIETARY 11/26/23 Breakfast Ordered BLOOD CULTURE Stat LAB 11/25/23 19:36 Received CBC W/ AUTO DIFF DAILY@0600 LAB 11/26/23 06:00 Ordered CBC W/ AUTO DIFF DAILY@0600 LAB 11/27/23 06:00 Ordered CBC W/ AUTO DIFF Stat LAB 11/25/23 19:36 Completed CMP [COMPREHENSIVE METABOLIC PANEL] Stat LAB 11/25/23 19:36 Completed COMPREHENSIVE METABOLIC PANEL DAILY@0600 LAB 11/26/23 06:00 Ordered COMPREHENSIVE METABOLIC PANEL DAILY@0600 LAB 11/27/23 06:00 Ordered COVID [SARS COV-2 RNA RAPID EDUARD] Stat LAB 11/25/23 21:15 Completed FERRITIN Routine LAB 11/26/23 06:00 Ordered FOLATE Routine LAB 11/26/23 06:00 Ordered IRON AND TIBC Routine LAB 11/26/23 06:00 Ordered LACTIC ACID Stat LAB 11/25/23 19:36 Completed LEGIONELLA URINARY ANTIGEN Stat LAB 11/25/23 20:24 Received MISCELLANEOUS SEND OUT Stat LAB 11/25/23 20:24 Received MRSA SCREEN Routine LAB 11/25/23 21:41 Uncollected RETIC COUNT Routine LAB 11/26/23 06:00 Ordered TYPE AND SCREEN Stat LAB 11/26/23 06:00 Ordered URINALYSIS C & S IF INDICATED Stat LAB 11/25/23 20:24 Completed URINE CULTURE Stat LAB 11/25/23 20:24 Received VITAMIN B12 Routine LAB 11/26/23 06:00 Ordered Acetaminophen [Tylenol] Meds 11/25/23 21:41 Ordered 650 mg PO Q4H PRN Ceftriaxone/D5w 1 gm Premix [Rocephin 1 gm/50 ml D5w] Meds 11/26/23 09:00 Ordered 1 gm in 50 ml IV DAILY Ceftriaxone/D5w 1 gm Premix [Rocephin 1 gm/50 ml D5w] Meds 11/25/23 21:11 Discontinued 1 gm in 50 ml IV ONCE Doxycycline Hyclate Meds 11/25/23 21:45 Ordered 100 mg PO Q12HR Sodium Chloride 0.9% [Sodium Chloride] 1,000 ml Meds 11/25/23 21:48 Active IV BOLUS CXR [CHEST, 1V AP ONLY] Stat RADS 11/25/23 19:20 Completed Medications Generic Name Dose Route Start Last Admin Trade Name Freq PRN Reason Stop Dose Admin Acetaminophen 650 mg 11/25/23 21:41 Acetaminophen 325 Mg Tablet PO Q4H PRN Mild Pain Doxycycline Hyclate 100 mg 11/25/23 21:45 Doxycycline Hyclate 100 Mg Capsule PO 11/28/23 21:44 Q12HR MITZI CEFTRIAXONE/D5W 1 GM PREMIX 1 gm in 50 mls @ 75 mls/hr 11/26/23 09:00 Rocephin 1 Gm/50 Ml D5w IV 11/29/23 08:59 DAILY MITZI Sodium Chloride 1,000 mls @ 500 mls/hr 11/25/23 21:48 Sodium Chloride IV 11/25/23 23:47 BOLUS ONE Discontinued Medications Generic Name Dose Route Start Last Admin Trade Name Freq PRN Reason Stop Dose Admin CEFTRIAXONE/D5W 1 GM PREMIX 1 gm in 50 mls @ 100 mls/hr 11/25/23 21:11 11/25/23 21:40 Rocephin 1 Gm/50 Ml D5w IV 11/25/23 21:40 100 mls/hr ONCE ONE Administration Vital Signs: Temp Pulse Resp BP Pulse Ox 11/25/23 18:49 97.7 F 86 22 H 123/66 95 Patient with left basilar infiltrate possible pneumonia along with UTI patient was given 1 g of Rocephin lactic acid elevated 2.1 patient was given 500 cc NS bolus patient has frequent falls ambulance called 6 times within the last week 3 times was left assist to other times patient was taken to [facility] on time for UTI prescribed oral antibiotics second time for dislodged catheter and this is his third ER visit within the last week due to frequent falls. Patient will require further IV antibiotics and physical therapy evaluation for placement at residential facility patient is agreeable with the plan of care called hospitalist on-call Na discussed the patient case with her and she accepted the patient to be admitted under her services. Discharge Plan Discharge Patient Disposition: ADMITTED INPATIENT Discharge Problem: Urinary tract infectious disease, Pneumonia Prescriptions: No Action buspirone 5 mg tablet 5 mg PO TID atorvastatin 80 mg tablet 80 mg PO DAILY ipratropium-albuterol 0.5 mg-3 mg(2.5 mg base)/3 mL solution for nebulization 3 ml INHALATION QID albuterol sulfate 90 mcg/actuation HFA aerosol inhaler 1 inh inhalation BID PRN (Reason: Shortness Of Breath) Trelegy Ellipta 100-62.5-25 mcg blister with device 1 inh inhalation DAILY aspirin 81 mg Tablet,Chewable 81 mg PO DAILY midodrine 10 mg Tablet 10 mg PO TID fludrocortisone 0.1 mg Tablet 0.1 mg PO DAILY alprazolam 0.25 mg Tablet 0.25 mg PO BID PRN (Reason: Anxiety) Qty: 60 0RF sulfamethoxazole-trimethoprim [Bactrim DS] 800-160 mg tablet 1 ea PO BID Qty: 14 0RF cholecalciferol (vitamin D3) 25 mcg (1,000 unit) capsule 25 mcg PO DAILY Myrbetriq 50 mg tablet extended release 24 hr 50 mg PO DAILY sennosides-docusate sodium 8.6-50 mg tablet 1 tab-cap PO DAILY naproxen 500 mg tablet 500 mg PO BID PRN (Reason: pain) Did you review [place] [employer]PHOL[employer] for ALL controlled substances?: Not Applicable ED Provider: MIGNON BEST Condition: Stable Physician Progress Note: []
[2023-11-25] MEDS: ROCEPHIN 1 GM/50 ML D5W 1 GM/50 ML BAG IV ONE (21:40)
[2023-11-25 21:41] LABS: SARS COV-2 RNA RAPID NAAT NEGATIVE (NEGATIVE)
[2023-11-25] MEDS ORDERED: TYLENOL PO PRN (21:41)
[2023-11-26] MEDS: DOXYCYCLINE HYCLATE PO SCH (00:37)
[2023-11-26] MEDS: SODIUM CHLORIDE 1,000 ML IV ONE (00:41)
[2023-11-26] MEDS ORDERED: NAPROSYN PO PRN (01:20)
[2023-11-26 01:37] VITALS: BMI 17.3
[2023-11-26 06:18] LABS: IRON 26.8 ug/dL (49-181)
[2023-11-26 06:23] LABS: ALANINE AMINOTRANSFERASE 136.8 U/L (0-50); ALBUMIN 3.08 g/dL (3.5-5.0); ALKALINE PHOSPHATASE 80.6 U/L (56-119); ASPARTATE AMINO TRANSFERASE 125.6 U/L (17-59); BILIRUBIN,TOTAL 0.37 mg/dL (0.2-1.3); BLOOD UREA NITROGEN 25.8 mg/dL (9-20); CALCIUM 8.45 mg/dL (8.4-10.2); CHLORIDE 102.7 mmol/L (98-107); CREATININE 1.57 mg/dL (0.60-1.10); GLUCOSE 87.1 mg/dL (74-106); POTASSIUM 4.79 mmol/L (3.5-5.1); SODIUM 139.8 mmol/L (134.5-145); TOTAL PROTEIN 5.46 g/dL (6.3-8.2)
[2023-11-26 06:30] LABS: CARBON DIOXIDE 36.9 mmol/L (22-30.0)
[2023-11-26 06:56] LABS: FERRITIN 24.3 ng/mL (17.9-464.0)
[2023-11-26 07:16] LABS: BASOPHILS % (AUTO) 0.3 % (0.0-3.0); EOSINOPHILS % (AUTO) 0.1 % (0.0-7.0); HEMATOCRIT 23.7 % (42.0-52.0); LYMPHOCYTES # (AUTO) 0.8 K/uL (0.60-3.4); MEAN CORPUSCULAR HEMOGLOBIN 31.5 pg (27.0-31.0); MEAN CORPUSCULAR HGB CONC 29.5 (31.8-35.4); MEAN CORPUSCULAR VOLUME 106.8 fl (80.0-94.0); MONOCYTES # (AUTO) 0.5 K/uL (0.4-2.0); MONOCYTES % (AUTO) 7.2 (0-10); NEUTROPHILS # (AUTO) 5.9 K/ul (2.0-6.9); NEUTROPHILS % (AUTO) 81.4 % (42.2-75.2); PLATELET COUNT 130 10^3/uL (140-440); RED BLOOD COUNT 2.22 10^6/ul (4.70-6.10); WHITE BLOOD COUNT 7.27 K/ul (4.2-10.2)
[2023-11-26 07:21] LABS: ABSOLUTE RETICS # 0.0395; RETICULOCYTE % 1.77 %; RETICULOCYTE HEMOGLOBIN 34.8
[2023-11-26 07:27] LABS: FOLATE 8.07 ng/mL
[2023-11-26] MEDS: MYRBETRIQ PO SCH (08:27)
[2023-11-26] MEDS: LIPITOR PO SCH (08:28)
[2023-11-26] MEDS: MIDODRINE PO SCH (08:29)
[2023-11-26] MEDS: VITAMIN D PO SCH (08:30)
[2023-11-26] MEDS: SENNA PO SCH (08:30)
[2023-11-26] MEDS: ASPIRIN CHEWABLE PO SCH (08:30)
[2023-11-26] MEDS: COLACE PO SCH (08:31)
[2023-11-26] MEDS: BUSPAR PO SCH (08:31)
[2023-11-26] MEDS: FLUDROCORTISONE ACETATE PO SCH (08:52)
[2023-11-26] MEDS ORDERED: BACTRIM DS 800/160 MG PO SCH (09:00)
[2023-11-26] MEDS: DUONEB NEB SCH ×2 (09:47→09:49)
--- NOTE | 2023-11-26 11:33 | PCM ---
Date of Service Date Seen by Provider: 11/26/23 Time Seen by Provider: 09:00 Admit Day/Time Admission Date: 11/25/23 Admission Time: 21:41 Reason for Admission Chief Complaint: UTI,PNEUMONIA, FALLS Hospital Provider Hospital Provider: Na Floyd PA-C, [facility] Primary Care Physician Primary Care Physician: APARNA RENEE History of Present Illness History of Present Illness: Patient is a 68 year old male from home with pmhx of CVA, hypertension, COPD, hyperlipidemia, recurrent UTIs, suprapubic catheter, who presented to ER with frequent falls and SOB. Per ERP patient had 6 EMS visits in the past week, 3 for lift assist and 3 to bring to ER. He was recently diagnosed with UTI in ER and given bactrim. Pt was found to have PNA on CXR. He wears 2.5L 24/. Hgb down from baseline. Per ERP patient is interested in shelter rehab as he cannot care for himself at home. Upon my evaluation this morning, patient states he feels ok. He is rather demanding to staff. Overall feeling better. Refused therapy this morning. Case Discussed With Case Discussed With: Patient's case was discussed with the ER Physicians, Dr. Abdelrahman Sharma. PSYCHIATRIC Medical History Fractured bone Both feet, fell off a roof. T14.8XXA - Other injury of unspecified body region, initial encounter (ICD- 10) Emphysema of lung J43.9 - Emphysema, unspecified (ICD-10) Aphasia as late effect of stroke I69.320 - Aphasia following cerebral infarction (ICD-10) HTN (hypertension) I10 - Essential (primary) hypertension (ICD-10) COPD (chronic obstructive pulmonary disease) J44.9 - Chronic obstructive pulmonary disease, unspecified (ICD-10) CVA (cerebral vascular accident) I63.9 - Cerebral infarction, unspecified (ICD-10) Hyperlipidemia E78.5 - Hyperlipidemia, unspecified (ICD-10) Acute anxiety F41.9 - Anxiety disorder, unspecified (ICD-10) Suprapubic catheter Z93.59 - Other cystostomy status (ICD-10) Acute UTI N39.0 - Urinary tract infection, site not specified (ICD-10) Falls W19.XXXA - Unspecified fall, initial encounter (ICD-10) Social History Smoking and tobacco status: Current every day smoker Tobacco type: cigarettes Smoking cigarettes per day: 8 Quit status: considering quitting Substance use type: does not use Household members: none Marital status: S SINGLE Allergies Allergies Allergy/AdvReac Type Severity Reaction Status Date / Time No Known Allergies Allergy Verified 11/25/23 19:13 Current Medications Home Medications albuterol sulfate 90 mcg/actuation aerosol inhaler 1 inh inhalation BID PRN Shortness Of Breath 06/20/21 [History Confirmed 11/25/23 Last Taken 06/20/21] atorvastatin 80 mg tablet 80 mg PO DAILY 06/20/21 [History Confirmed 11/25/23 Last Taken Unknown] buspirone 5 mg tablet 5 mg PO TID 06/20/21 [History Confirmed 11/25/23 Last Taken Unknown] fluticasone fur. 100 mcg-umeclid 62.5 mcg-vilant 25 mcg inhalat.powder (Trelegy Ellipta) 1 inh inhalation DAILY 06/20/21 [History Confirmed 11/25/23 Last Taken 08/08/22 20:00] ipratropium 0.5 mg-albuterol 3 mg (2.5 mg base)/3 mL nebulization soln 3 ml inhalation QID 06/20/21 [History Confirmed 11/25/23 Last Taken Unknown] aspirin 81 mg chewable tablet 81 mg PO DAILY 08/09/22 [History Confirmed 11/25/23 Last Taken Unknown] fludrocortisone 0.1 mg tablet 0.1 mg PO DAILY 08/09/22 [History Confirmed 11/25/23 Last Taken Unknown] midodrine 10 mg tablet 10 mg PO TID 08/09/22 [History Confirmed 11/25/23 Last Taken Unknown] alprazolam 0.25 mg tablet 0.25 mg PO BID PRN Anxiety #60 tabs 08/11/22 [Rx Confirmed 11/25/23 Last Taken Unknown] sulfamethoxazole 800 mg-trimethoprim 160 mg tablet (Bactrim DS) 1 ea PO BID #14 tabs 11/21/23 [Rx Confirmed 11/25/23 Last Taken Unknown] cholecalciferol (vitamin D3) 25 mcg (1,000 unit) capsule 25 mcg PO DAILY 11/25/23 [History Confirmed 11/25/23 Last Taken Unknown] mirabegron 50 mg tablet,extended release 24 hr (Myrbetriq) 50 mg PO DAILY 11/25/23 [History Confirmed 11/25/23 Last Taken Unknown] naproxen 500 mg tablet 500 mg PO BID PRN pain 11/25/23 [History Confirmed 11/25/23 Last Taken Unknown] sennosides 8.6 mg-docusate sodium 50 mg tablet 1 tab-cap PO DAILY 11/25/23 [History Confirmed 11/25/23 Last Taken Unknown] Home Acetaminophen (Acetaminophen 325 Mg Tablet) 650 mg PO Q4H PRN PRN Reason: Mild Pain Albuterol/Ipratropium (Ipratropium/Albuterol Vial.Neb) 3 ml NEB RTQID [facility] Last Admin: 11/26/23 13:59 Dose: 3 ml Alprazolam (Alprazolam 0.25 Mg Tablet) 0.25 mg PO BID PRN PRN Reason: Anxiety Aspirin (Aspirin 81 Mg Tab.Chew) 81 mg PO DAILYWM2 [facility] Last Admin: 11/26/23 08:30 Dose: 81 mg Atorvastatin Calcium (Atorvastatin Calcium 20 Mg Tablet) 80 mg PO DAILY [facility] Last Admin: 11/26/23 08:28 Dose: 80 mg Budesonide/Formoterol Fumarate (Budesonide/Formoterol Fumarate 160/4.5 Mcg Inhaler) 2 puff IH BID [facility] Last Admin: 11/26/23 12:17 Dose: 2 puff Buspirone HCl (Buspirone Hcl 10 Mg Tablet) 5 mg PO TID [facility] Last Admin: 11/26/23 08:31 Dose: 5 mg Cholecalciferol (Cholecalciferol (Vitamin D3) 1,000 Unit (25 Mcg) Tablet) 1,000 unit PO DAILY [facility] Last Admin: 11/26/23 08:30 Dose: 1,000 unit Docusate Sodium (Docusate Sodium 100 Mg Capsule) 100 mg PO DAILY [facility] Last Admin: 11/26/23 08:31 Dose: 100 mg Doxycycline Hyclate (Doxycycline Hyclate 100 Mg Capsule) 100 mg PO Q12HR [facility] Stop: 11/30/23 20:00 Last Admin: 11/26/23 08:30 Dose: 100 mg Enoxaparin Sodium (Enoxaparin Sodium 40 Mg/0.4 Ml Syr) 40 mg SUBCUT DAILY [facility] Last Admin: 11/26/23 13:01 Dose: 40 mg Fludrocortisone Acetate (Fludrocortisone Acetate 0.1 Mg Tablet) 0.1 mg PO DAILY [facility] Last Admin: 11/26/23 08:52 Dose: 0.1 mg CEFTRIAXONE/D5W 1 GM PREMIX (Rocephin 1 Gm/50 Ml D5w) 1 gm in 50 mls @ 75 mls/hr IV BEDTIME [facility] Stop: 11/29/23 20:59 Methylprednisolone Sodium Succinate (Methylprednisolone Sod Succ/Pf 40 Mg/Ml Vial) 40 mg IVP Q8HR [facility] Last Admin: 11/26/23 13:01 Dose: 40 mg Midodrine (Midodrine Hcl 5 Mg Tablet) 10 mg PO TID [facility] Last Admin: 11/26/23 08:29 Dose: 10 mg Mirabegron (Mirabegron 25 Mg Tab.Er.24h) 50 mg PO DAILY [facility] Last Admin: 11/26/23 08:27 Dose: 50 mg Sennosides (Sennosides 8.6 Mg Tablet) 8.6 mg PO DAILY [facility] Last Admin: 11/26/23 08:30 Dose: 8.6 mg Tiotropium [place] (Tiotropium [place] 18 Mcg Cap.W.Dev) 1 cap IH DAILY [facility] Last Admin: 11/26/23 12:17 Dose: 1 cap Discontinued Medications Albuterol/Ipratropium (Ipratropium/Albuterol Vial.Neb) 3 ml NEB QID [facility] Last Admin: 11/26/23 09:49 Dose: Not Given CEFTRIAXONE/D5W 1 GM PREMIX (Rocephin 1 Gm/50 Ml D5w) 1 gm in 50 mls @ 100 mls/hr IV ONCE ONE Stop: 11/25/23 21:40 Last Admin: 11/25/23 21:40 Dose: 100 mls/hr Sodium Chloride (Sodium Chloride) 1,000 mls @ 500 mls/hr IV BOLUS ONE Stop: 11/25/23 23:47 Last Infusion: 11/26/23 03:08 Dose: Infused Opioid Naive vs. Tolerant Does Patient Take Opioids?: No Is Patient Opioid Naive?: Yes What is Opioid Naive?: *Opioid Naive implies the patient is not already taking opioids or not chronically receiving opioids on a daily basis. *PRN dosing is not "usually" associated with tolerance. *Patients are at higher risk of over-sedation and aspiration. Is Patient Opioid Tolerant?: No What is Opioid Tolerant?: *Opioid Tolerance implies less than the expected response to an opioid. *Acquired tolerance is defined by the patient taking 60mg of oral morphine daily (or equianalgesic dose of another opioid) for 1 week or more. *Often associated with chronic pain. *May take more than usual dose to achieve desired pain control. Review of Systems Constitutional: Reports Weakness; Denies Fever Head: Reports Normocephalic and Atraumatic Throat: Denies Sore Throat or Difficulty Swallowing Cardiovascular: Denies Chest pain or Chest Pressure Respiratory: Reports Cough and Shortness of air Gastrointestinal: Denies Nausea, Vomiting, Diarrhea, Abdominal pain or Melena Genitourinary: Reports Other (+suprapubic catheter. ) Dermatologic: Denies Rashes Neurological: Reports Weakness and Problems with walking Physical examination Most Recent Vital Signs: Most Recent Vital Signs Temperature 97.7 F 11/26/23 10:00 Temperature Source Temporal Artery Scan 11/26/23 10:00 Temperature Source Infrared 11/25/23 18:49 Pulse Rate 87 11/26/23 10:00 Respiratory Rate 20 11/26/23 10:00 Blood Pressure 152/86 H 11/26/23 10:00 Blood Pressure Mean 108 11/26/23 10:00 Blood Pressure Right Arm 131/70 11/25/23 23:49 Blood Pressure Location Left Arm 11/26/23 10:00 Blood Pressure Position Sitting 11/26/23 10:00 O2 Sat by Pulse Oximetry 98 11/26/23 10:00 Oxygen Delivery Method Nasal Cannula 11/26/23 10:00 Oxygen Flow Rate 2.5 11/26/23 10:00 Height 5 ft 8 in 11/26/23 09:18 Weight 114 lb 3 oz 11/26/23 09:18 Telemetry Type Remote Telemetry 11/26/23 07:00 Telemetry Monitoring Continues 11/26/23 07:00 Telemetry Heart Rate 81 11/26/23 07:00 Telemetry SPO2 96 11/26/23 07:00 EKG HI Interval 0.16 11/26/23 07:00 EKG QRS Interval 0.08 11/26/23 07:00 Telemetry Strip Reading SR 11/26/23 07:00 Appearance: Positive No Apparent Distress, Alert and Oriented x3, Ill-Appearing, Thin and Cachectic Skin: Positive [place], Warm and Good Turgor; Negative Rashes HEENT: Positive Normocephalic and Atraumatic Neck: Positive Supple and Midline Trachea Chest/Lungs: Positive Wheezes (ronald, insp and exp ); Negative Rales or Rhonci Heart: Positive RRR GI/: Positive Soft, Nontender, Bowel Sounds Normal and No Distention Extremities: Negative Edema Neurological: Positive Cranial Nerves Intact, Alert, Oriented and Other (+generalized weakness ) Psychiatric: Positive Oriented x4 Labs This Visit Labs This Visit: Labs This Visit 11/25/23 11/25/23 11/25/23 19:36 20:24 21:15 WBC 6.99 RBC 2.46 L Hgb 7.9 L Hct 26.1 L MCV 106.1 H MCH 32.1 H MCHC 30.3 L RDW Coeff of Joycelyn 16.0 H Plt Count 137 L Immature Gran % (Auto) 0.1 Neut % (Auto) 83.6 H Lymph % (Auto) 9.9 L [place] % (Auto) 6.0 Eos % (Auto) 0.1 Baso % (Auto) 0.3 Reticulocyte % (Auto) Neut # (Auto) 5.8 Lymph # (Auto) 0.7 [place] # (Auto) 0.4 Eos # (Auto) 0.0 Baso # (Auto) 0.0 Immature Gran # (Auto) 0.0 Absolute Retic Retic Hgb Equivalent Sodium 142.4 Potassium 4.70 Chloride 101.6 Carbon Dioxide 39.7 H Anion Gap 5.80 BUN 24.0 H Creatinine 1.34 H Estimated GFR (MDRD) 53.00 BUN/Creatinine Ratio 17.91 Glucose 116.3 H Lactic Acid 2.16 H Calcium 9.41 Iron TIBC % Saturation Ferritin Total Bilirubin 0.48 AST 132.4 H ALT 130.3 H Alkaline Phosphatase 86.4 Total Protein 6.01 L Albumin 3.52 Globulin 2.49 Albumin/Globulin Ratio 1.41 Vitamin B12 Folate Urine Color Yellow Urine Clarity Cloudy Urine pH 6.0 Ur Specific [place] >=1.030 Urine Protein 1+ H Urine Glucose (UA) Negative Urine Ketones Negative Urine Blood 1+ H Urine Nitrite Negative Urine Bilirubin Negative Urine Urobilinogen 1.0 H Ur Leukocyte Esterase 1+ H Urine Microscopic RBC 20-30 Urine Microscopic WBC 50-100 Ur Squamous Epith Cells Not Reportable Uric Acid Crystals 3+ Urine Bacteria 1+ SARS CoV-2 RNA Rapid EDUARD Negative Blood Type Antibody Screen Crossmatch ([facility]) 11/26/23 11/26/23 05:09 05:09 WBC 7.27 RBC 2.22 L Hgb 7.0 L Hct 23.7 L MCV 106.8 H MCH 31.5 H MCHC 29.5 L RDW Coeff of Joyc[place] 16.0 H Plt Count 130 L Immature Gran % (Auto) 0.0 Neut % (Auto) 81.4 H Lymph % (Auto) 11.0 [place] % (Auto) 7.2 Eos % (Auto) 0.1 Baso % (Auto) 0.3 Reticulocyte % (Auto) 1.77 Neut # (Auto) 5.9 Lymph # (Auto) 0.8 [place] # (Auto) 0.5 Eos # (Auto) 0.0 Baso # (Auto) 0.0 Immature Gran # (Auto) 0.0 Absolute Retic 0.0395 Retic Hgb Equivalent 34.8 Sodium 139.8 Potassium 4.79 Chloride 102.7 Carbon Dioxide 36.9 H Anion Gap 4.99 BUN 25.8 H Creatinine 1.57 H Estimated GFR (MDRD) 44.00 BUN/Creatinine Ratio 16.43 Glucose 87.1 Lactic Acid Calcium 8.45 Iron 26.8 L TIBC 265 % Saturation 10 Ferritin 24.30 Total Bilirubin 0.37 AST 125.6 H ALT 136.8 H Alkaline Phosphatase 80.6 Total Protein 5.46 L Albumin 3.08 L Globulin 2.38 Albumin/Globulin Ratio 1.29 Vitamin B12 730 Folate 8.07 Urine Color Urine Clarity Urine pH Ur Specific [place] Urine Protein Urine Glucose (UA) Urine Ketones Urine Blood Urine Nitrite Urine Bilirubin Urine Urobilinogen Ur Leukocyte Esterase Urine Microscopic RBC Urine Microscopic WBC Ur Squamous Epith Cells Uric Acid Crystals Urine Bacteria SARS CoV-2 RNA Rapid EDUARD Blood Type A POSITIVE A POSITIVE Antibody Screen Negative Crossmatch ([facility]) See Detail Microbiology This Visit 11/25/23 20:24 Urine,Clean Catch Urine Culture - Preliminary Imaging Imaging: EXAM: FRONTAL VIEW OF THE CHEST. HISTORY: Cough. COMPARISON: Chest radiograph 08/09/2022. FINDINGS: Cardiac loop recorder projects over the left chest. Septal closure device noted at the heart. Normal heart size. Atherosclerotic calcifications of the aorta. Hyperexpanded lungs. Patchy opacities at the left base. No visible pleural effusion or pneumothorax. Diffuse osseous demineralization. Mild scoliosis. Degenerative changes of the shoulders. IMPRESSION: Left basilar opacities concerning for pneumonia. Emphysema. Review Statement Review Statement: I have independently reviewed and interpreted the labs/EKGs/imaging that were ordered by the ER provider. I have reviewed all outside records that are available currently in our EMR including imaging/notes/labs from previous visits. Plan Plan: 1. Right sided pneumonia - Rocephin and doxy, duonebs, solumedrol. RT consult. Legionella, mrsa, strep pneumo ordered. 2. Acute COPD exacerbation - Plan as above 3. UTI with chronic suprapubic catheter - Recent culture grew klebsiella sensitive to rocephin. Cont abx. Hold bactrim. 4. ROGELIO, stage I - Likely due to bactrim use. Pt appears euvolemic. Hold naproxen. 5. Acute on chronic anemia - Iron low. No black stools so far. Transfuse 1U PRBCs. Check H&H 1 hour following blood. 6. Orthostatic hypotension - Cont home meds 7. Hyperlipidemia - Cont home meds DVT Prophylaxis: Lovenox Time Spent: Greater than 80 minutes spent with patient, 50% of the time spent with this patient was devoted to counseling and coordination of care. [facility] Plannin minutes spent discussing advance care planning. FULL CODE Smoking Cessation: 3 minutes spent discussing smoking cessation. Admit to: Inpatient Discussed Plan of Care with Dr. Jana Kim. Medications Medication Orders: Medications Ordered Category Date Time Status Acetaminophen [Tylenol] Meds 11/25/23 21:41 Active 650 mg PO Q4H PRN Alprazolam [Xanax] Meds 11/26/23 01:20 Active 0.25 mg PO BID PRN Aspirin [Aspirin Chewable] Meds 11/26/23 09:00 Active 81 mg PO DAILYWM2 Atorvastatin Calcium [Lipitor] Meds 11/26/23 09:00 Active 80 mg PO DAILY Budesonide/Formoterol Fumarate [Symbicort 160-4.5 Mcg Meds 11/26/23 09:00 Active Inhaler] 2 puff IH BID Buspirone HCl [Buspar] Meds 11/26/23 09:00 Active 5 mg PO TID Ceftriaxone/D5w 1 gm Premix [Rocephin 1 gm/50 ml D5w] Meds 11/26/23 21:00 Active 1 gm in 50 ml IV BEDTIME Cholecalciferol (Vitamin D3) [Vitamin D] Meds 11/26/23 09:00 Active 1,000 unit PO DAILY Docusate Sodium [Colace] Meds 11/26/23 09:00 Active 100 mg PO DAILY Doxycycline Hyclate Meds 11/25/23 21:45 Active 100 mg PO Q12HR Fludrocortisone Acetate Meds 11/26/23 09:00 Active 0.1 mg PO DAILY Ipratropium/Albuterol Neb [Duoneb] Meds 11/26/23 10:00 Active 3 ml NEB RTQID Methylprednisolone Sod Succ/Pf [Solu-Medrol 40 mg] Meds 11/26/23 09:50 Active 40 mg IVP Q8HR Midodrine HCl [Midodrine] Meds 11/26/23 09:00 Active 10 mg PO TID Mirabegron [Myrbetriq] Meds 11/26/23 09:00 Active 50 mg PO DAILY Sennosides [Senna] Meds 11/26/23 09:00 Active 8.6 mg PO DAILY Tiotropium [place] [Spiriva] Meds 11/26/23 09:00 Active 1 cap IH DAILY
[2023-11-26] MEDS: SPIRIVA IH SCH (12:17)
[2023-11-26] MEDS: SYMBICORT 160-4.5 MCG INHALER IH SCH (12:17)
[2023-11-26] MEDS: LOVENOX SUBCUT SCH (13:01)
[2023-11-26] MEDS: SOLU-MEDROL 40 MG IVP SCH (13:01)
[2023-11-26] MEDS: XANAX PO PRN (16:32)
[2023-11-26 16:46] LABS: HEMATOCRIT 28.2 % (42.0-52.0); HEMOGLOBIN 8.7 g/dl (14.0-18.0)
--- NOTE | 2023-11-26 17:00 | RS.PTINEVL ---
Subjective Patient information Date of Evaluation: 11/26/23 Date of Arrival on Unit: 11/25/23 Admitted From:: Home Diagnosis: pneumonia, UTI, frequent falls Usual Living Arrangement: Alone Living Arrangement Comments: pt has a home health aide 5x per week Home Environment: House Medical History: Hypertension, CVA/TIA, COPD and Arthritis Medical History Comments:: anxiety, aphasia, chronic suprapubic catheter, home O2 LATEX ALLERGY?: No Medications: see chart Subjective Information/ Patient Comments:: pt states that he walks with rollator at home. States his home health aide (Nora) cooks for him. pt states that he will try to walk in the room. Level of function Prior to this admission, the patient could do the following:: Independent Selfcare, Independent ADL's and Independent Ambulation Abilities prior to this admission: per pt he was independent with ADLs and amb however pt has had 6 falls in the past week. Current Level of Function: Partially Dependent Current Equipment Used at Home: Rolling walker, Nebulizer, concentrator. Interventions Objective Patient Orientation: Person and Place Current Interventions: IV's, Oxygen, Telemetry and Snowden Catheter Observation: pt with dressings to both knees that he reports are due to falls Range of Motion ROM Right Upper Extremity AROM: WFL's Left Upper Extremity AROM: WFL's Right Lower Extremity AROM: WFL's Left Lower Extremity AROM: WFL's Muscle Strength Muscle Strength Comments:: unable to fully MMT due to anxiety and SOA. BUE atleast 4-/5 as noted by function BLE atleast 4- to 4/5 as noted by function Sensation Sensation Right Upper Extremity: Intact/Normal Left Upper Extremity: Intact/Normal Right Lower Extremity: Intact/Normal Left Lower Extremity: Intact/Normal Palpation Palpation Findings: None/Normal Coordination Tests Bilateral: Finger to Nose: Moderate Deviation Heel to [place]: Marked/Severe Deviation Toe Tapping: Moderate Deviation Balance Sitting Balance and Reactions Static Sitting Balance: Fair (fair-) Dynamic Sitting Balance: Poor Standing Balance and Reactions Static Standing Balance: Poor Dynamic Standing Balance: Poor Functional Mobility Bed Mobility Rolling R/L: CGA Scooting: Mod Assist and 2 person assist Supine to Sit: Min Assist and 1 person assist Sit to Supine: Min Assist and 1 person assist Transfers Sit to Stand: Min Assist, Mod Assist and 1 person assist Stand to Sit: Min Assist, Mod Assist and 1 person assist Comments:: pt is impulsive as well as demonstrates ataxic movements with BUE and LE Safety Awareness Safety Awareness: Poor STACIE INDEX SCORE: n/a Ambulation Ambulation Assistive Device Used: Rolling Walker Orthotic/Prosthetic Device: No Distance: 5ft x 2 Assistance needed with Ambulation: Min Assist, Mod Assist and 1 person assist Quality of Ambulation: pt amb with O2, pt very anxious, took 3 steps and states "no" and sat in recliner. pt rested and asked to be assisted back to bed. pt instructed on pursed lip breathing. pt amb 3steps back to bed with min to mod x 1. Gait Deviations: Wide Based gait, Ataxic gait, Forward posture, Short stride and Deviates from path Factors Affecting Ambulation: Decreased Balance, Breathing/O2 Saturation, Weakness, Decreased Coordination, Decreased Safety and Limited Endurance Treatment time Units charged ADL: 1 (theract) Time with patient Length of Evaluation: 19 Total treatment time: 31 Patient Education Education Patient Education: Activity Modification and Education of Plan of Care Teaching Recipient: Patient Teaching Methods: Discussion Comments: Discussed with pt that we would take therapy slowly and only do what he felt he could, we would make sure he is safe. pt apologized for yelling and seemed to feel more comfortable. Assessment Assessment Problem List:: Decreased level of function, Requires training/education, Decreased safety/Risk of falls and Weakness Rehab Potential: Fair Further Therapy Indicated?: Yes Candidate for Swing Bed for Therapy Services?: Feel pt may not be a candidate for swing bed due to requiring more LTC. Evaluation Complexity: HISTORY: Medium, EXAM OF BODY SYSTEMS: Medium, CLINICAL PRESENTATION: Medium and CLINICAL DECISION MAKING: Medium Patient's Goal(s): pt unable to express his goals this visit. Short Term Goals GOAL #1: Rolling with bedrails CGA Goal to be met by: 11/29/23 GOAL #2: Transfer sup to/from sit CGA Goal to be met by: 11/29/23 GOAL #3: Transfer sit to/from stand min to CGA Goal to be met by: 11/29/23 GOAL #4: Improve dyn sitting balance fair Goal to be met by: 11/29/23 GOAL #5: Stand pivot bed to chair CGA x 1 Goal to be met by: 11/29/23 GOAL #6: pt amb with rwx or rollator 25ft with O2 min x 1 Goal to be met by: 11/29/23 Senior Living Goals GOAL #1: Transfer sit to/from stand CGA to SBA Goal to be met by: 12/02/23 GOAL #2: pt amb 50ft with rwx or rollator with CGA and O2 Goal to be met by: 12/02/23 GOAL #3: Improve static stand balance fair- Goal to be met by: 12/02/23 Plan Plan of Care: Therapeutic EX and Therapeutic Activity Other:: gait training, pt/caregiver education on pursed lip breathing Frequency of Treatment: 1-2 X day, as tolerated Duration of Treatment: 1 Week Anticipated Discharge Destination: [facility] Treatment Diagnosis (ICD 10 Codes): ataxic gait R 26.0 impaired balance R 26.81 weakness M62.81 falls R 29.6 Has the Physician been added for Co-signature?: Yes
[2023-11-26] MEDS: ROCEPHIN 1 GM/50 ML D5W 1 GM/50 ML BAG IV SCH (21:42)
[2023-11-27 05:35] LABS: HEMATOCRIT 27.2 % (42.0-52.0); HEMOGLOBIN 8.5 g/dl (14.0-18.0); IMMATURE GRANULOCYTE % (AUTO) 0.2 % (0.0-5.0); LYMPHOCYTES # (AUTO) 0.6 K/uL (0.60-3.4); LYMPHOCYTES % (AUTO) 6.7 (10.0-50.0); MEAN CORPUSCULAR HEMOGLOBIN 31.1 pg (27.0-31.0); MEAN CORPUSCULAR HGB CONC 31.3 (31.8-35.4); MEAN CORPUSCULAR VOLUME 99.6 fl (80.0-94.0); MONOCYTES # (AUTO) 0.1 K/uL (0.4-2.0); NEUTROPHILS # (AUTO) 8.1 K/ul (2.0-6.9); NEUTROPHILS % (AUTO) 92.1 % (42.2-75.2); PLATELET COUNT 116 10^3/uL (140-440); RDW COEFFICIENT OF VARIATION 16.9 % (11.6-14.8); RED BLOOD COUNT 2.73 10^6/ul (4.70-6.10); WHITE BLOOD COUNT 8.79 K/ul (4.2-10.2)
[2023-11-27 05:53] LABS: ALANINE AMINOTRANSFERASE 115.1 U/L (0-50); ALBUMIN 3.2 g/dL (3.5-5.0); ALKALINE PHOSPHATASE 73.8 U/L (56-119); BILIRUBIN,TOTAL 0.6 mg/dL (0.2-1.3); BLOOD UREA NITROGEN 26.4 mg/dL (9-20); CALCIUM 8.33 mg/dL (8.4-10.2); CARBON DIOXIDE 37.7 mmol/L (22-30.0); CHLORIDE 103.2 mmol/L (98-107); CREATININE 0.86 mg/dL (0.60-1.10); GLUCOSE 122.6 mg/dL (74-106); POTASSIUM 4.78 mmol/L (3.5-5.1); SODIUM 138.6 mmol/L (134.5-145); TOTAL PROTEIN 5.7 g/dL (6.3-8.2)
--- NOTE | 2023-11-27 11:05 | PCM.PROG ---
Date/Time Seen Date Seen by Provider: 11/27/23 Time Seen by Provider: 08:30 Provider Provider: Na Jarvis [facility]-C, [facility] Chief Complaint Chief Complaint: UTI,PNEUMONIA, FALLS Subjective Subjective: Patient is feeling better, no complaints. [place] [facility] placement. Objective Appearance: Positive No Apparent Distress, Alert and Oriented x3, Thin and Cachectic Chest/Lungs: Positive Clear to Auscultation Bilaterally and Wheezes (improved ); Negative Rales or Rhonci Heart: Positive RRR GI/: Positive Soft, Nontender, Bowel Sounds Normal and No Distention Neurological: Positive Cranial Nerves Intact, Alert, Oriented and Other (+generalized weakness ) Vital Signs Vital Signs: Vital Signs: Last 24 Hours 11/26/23 12:42 11/26/23 12:52 11/26/23 12:57 Temperature 98.4 F 97.7 F Temperature Source Pulse Rate 75 78 Respiratory Rate 16 16 Blood Pressure 129/79 134/76 Blood Pressure Mean 95 95 Blood Pressure Location Blood Pressure Position O2 Sat by Pulse Oximetry Oxygen Delivery Method Oxygen Flow Rate Fraction of Inspired Oxygen (FIO2) Telemetry Type Remote Telemetry Telemetry Monitoring Continues Telemetry Heart Rate 74 Telemetry SPO2 100 EKG FL Interval 0.16 EKG QRS Interval 0.08 Telemetry Strip Reading SR 11/26/23 13:57 11/26/23 14:00 11/26/23 14:57 Temperature 98 F 98.1 F Temperature Source Pulse Rate 70 88 Respiratory Rate 16 16 Blood Pressure 130/70 136/82 Blood Pressure Mean 90 100 Blood Pressure Location Blood Pressure Position O2 Sat by Pulse Oximetry 98 Oxygen Delivery Method Nasal Cannula Oxygen Flow Rate 2.5 Fraction of Inspired Oxygen (FIO2) Telemetry Type Telemetry Monitoring Telemetry Heart Rate Telemetry SPO2 EKG FL Interval EKG QRS Interval Telemetry Strip Reading 11/26/23 15:24 11/26/23 18:00 11/26/23 19:00 Temperature 98 F 99.5 F Temperature Source Temporal Artery Scan Pulse Rate 85 95 Respiratory Rate 16 17 Blood Pressure 128/76 132/85 Blood Pressure Mean 93 100 Blood Pressure Location Left Arm Blood Pressure Position Sitting O2 Sat by Pulse Oximetry 94 L Oxygen Delivery Method Nasal Cannula Oxygen Flow Rate 2 Fraction of Inspired Oxygen (FIO2) Telemetry Type Remote Telemetry Telemetry Monitoring Continues Telemetry Heart Rate 106 H Telemetry SPO2 95 EKG FL Interval 0.16 EKG QRS Interval 0.08 Telemetry Strip Reading S. tach 11/26/23 20:00 11/26/23 20:17 11/26/23 20:59 Temperature 98.3 F Temperature Source Temporal Artery Scan Pulse Rate 95 Respiratory Rate 18 Blood Pressure 151/93 H Blood Pressure Mean 112 Blood Pressure Location Left Arm Blood Pressure Position Supine O2 Sat by Pulse Oximetry 92 L 95 Oxygen Delivery Method Nasal Cannula Nasal Cannula Nasal Cannula Oxygen Flow Rate 2.5 2.5 2 Fraction of Inspired Oxygen (FIO2) Telemetry Type Telemetry Monitoring Telemetry Heart Rate Telemetry SPO2 EKG FL Interval EKG QRS Interval Telemetry Strip Reading 11/27/23 01:00 11/27/23 05:28 11/27/23 05:28 Temperature 98.4 F Temperature Source Temporal Artery Scan Pulse Rate 89 Respiratory Rate 18 Blood Pressure 159/91 H Blood Pressure Mean 113 Blood Pressure Location Left Arm Blood Pressure Position Supine O2 Sat by Pulse Oximetry 100 91 L Oxygen Delivery Method Nasal Cannula Nasal Cannula Oxygen Flow Rate 2.5 3 Fraction of Inspired Oxygen (FIO2) Telemetry Type Remote Telemetry Telemetry Monitoring Telemetry Heart Rate Telemetry SPO2 EKG FL Interval EKG QRS Interval Telemetry Strip Reading Patient refused , removed telemetry 4 times 11/27/23 09:30 11/27/23 10:00 Temperature 97.9 F Temperature Source Temporal Artery Scan Pulse Rate 94 Respiratory Rate 18 Blood Pressure 152/92 H Blood Pressure Mean 112 Blood Pressure Location Left Arm Blood Pressure Position Sitting O2 Sat by Pulse Oximetry 3 L 97 Oxygen Delivery Method Nasal Cannula Nasal Cannula Oxygen Flow Rate 3 Fraction of Inspired Oxygen (FIO2) 99 Telemetry Type Telemetry Monitoring Telemetry Heart Rate Telemetry SPO2 EKG FL Interval EKG QRS Interval Telemetry Strip Reading Lab Results Lab Results: Lab Results: Last 24 Hours 11/27/23 11/26/23 11/26/23 04:58 16:28 05:09 WBC 8.79 RBC 2.73 L Hgb 8.5 L 8.7 L Hct 27.2 L 28.2 L MCV 99.6 H D MCH 31.1 H MCHC 31.3 L RDW Coeff of Joycelyn 16.9 H Plt Count 116 L Immature Gran % (Auto) 0.2 Neut % (Auto) 92.1 H Lymph % (Auto) 6.7 L [place] % (Auto) 1.0 Eos % (Auto) 0.0 Baso % (Auto) 0.0 Neut # (Auto) 8.1 H Lymph # (Auto) 0.6 [place] # (Auto) 0.1 L Eos # (Auto) 0.0 Baso # (Auto) 0.0 Immature Gran # (Auto) 0.0 Sodium 138.6 Potassium 4.78 Chloride 103.2 Carbon Dioxide 37.7 H Anion Gap 2.48 BUN 26.4 H Creatinine 0.86 D Estimated GFR (MDRD) 88.00 BUN/Creatinine Ratio 30.69 Glucose 122.6 H Calcium 8.33 L Total Bilirubin 0.60 AST 79.0 H D ALT 115.1 H Alkaline Phosphatase 73.8 Total Protein 5.70 L Albumin 3.20 L Globulin 2.50 Albumin/Globulin Ratio 1.28 Miscellaneous Test Blood Type A POSITIVE Antibody Screen Negative Crossmatch ([facility]) See Detail 11/25/23 20:24 WBC RBC Hgb Hct MCV MCH MCHC RDW Coeff of Joycelyn Plt Count Immature Gran % (Auto) Neut % (Auto) Lymph % (Auto) [place] % (Auto) Eos % (Auto) Baso % (Auto) Neut # (Auto) Lymph # (Auto) [place] # (Auto) Eos # (Auto) Baso # (Auto) Immature Gran # (Auto) Sodium Potassium Chloride Carbon Dioxide Anion Gap BUN Creatinine Estimated GFR (MDRD) BUN/Creatinine Ratio Glucose Calcium Total Bilirubin AST ALT Alkaline Phosphatase Total Protein Albumin Globulin Albumin/Globulin Ratio Miscellaneous Test Sent to [facility] Blood Type Antibody Screen Crossmatch ([facility]) Additional Comments Additional Comments: I have independently reviewed and interpreted the labs/EKGs/imaging ordered during this hospital stay. I have reviewed outside records that are available in our EMR that pertain to medical stay including imaging/notes/labs from previous visits. Active Medications Active Medications: Medications Generic Name Dose Route Start Last Admin Trade Name Freq PRN Reason Stop Dose Admin Acetaminophen 650 mg 11/25/23 21:41 Acetaminophen 325 Mg Tablet PO Q4H PRN Mild Pain Albuterol/Ipratropium 3 ml 11/26/23 10:00 11/27/23 09:33 Ipratropium/Albuterol Vial.Neb NEB 3 ml RTQID MITZI Administration Alprazolam 0.25 mg 11/26/23 01:20 11/26/23 16:32 Alprazolam 0.25 Mg Tablet PO 0.25 mg BID PRN Administration Anxiety Aspirin 81 mg 11/26/23 09:00 11/27/23 09:03 Aspirin 81 Mg Tab.Chew PO 81 mg DAILYWM2 MITZI Administration Atorvastatin Calcium 80 mg 11/26/23 09:00 11/27/23 09:02 Atorvastatin Calcium 20 Mg Tablet PO 80 mg DAILY MITZI Administration Budesonide/Formoterol Fumarate 2 puff 11/26/23 09:00 11/27/23 09:02 Budesonide/Formoterol Fumarate 160/4.5 Mcg Inhaler IH 2 puff BID MITZI Administration Buspirone HCl 5 mg 11/26/23 09:00 11/27/23 09:04 Buspirone Hcl 10 Mg Tablet PO 5 mg TID MITZI Administration Cholecalciferol 1,000 unit 11/26/23 09:00 11/27/23 09:00 Cholecalciferol (Vitamin D3) 1,000 Unit (25 Mcg) Tablet PO 1,000 unit DAILY MITZI Administration Docusate Sodium 100 mg 11/26/23 09:00 11/27/23 09:03 Docusate Sodium 100 Mg Capsule PO 100 mg DAILY MITZI Administration Doxycycline Hyclate 100 mg 11/25/23 21:45 11/27/23 09:03 Doxycycline Hyclate 100 Mg Capsule PO 11/30/23 20:00 100 mg Q12HR MITZI Administration Enoxaparin Sodium 40 mg 11/26/23 12:00 11/27/23 09:05 Enoxaparin Sodium 40 Mg/0.4 Ml Syr SUBCUT 40 mg DAILY MITZI Administration Fludrocortisone Acetate 0.1 mg 11/26/23 09:00 11/27/23 09:02 Fludrocortisone Acetate 0.1 Mg Tablet PO 0.1 mg DAILY MITZI Administration CEFTRIAXONE/D5W 1 GM PREMIX 1 gm in 50 mls @ 75 mls/hr 11/26/23 21:00 11/26/23 21:42 Rocephin 1 Gm/50 Ml D5w IV 11/29/23 20:59 75 mls/hr BEDTIME MITZI Administration Methylprednisolone Sodium Succinate 40 mg 11/26/23 09:50 11/27/23 05:29 Methylprednisolone Sod Succ/Pf 40 Mg/Ml Vial IVP 40 mg Q8HR MITZI Administration Midodrine 10 mg 11/26/23 09:00 11/27/23 09:03 Midodrine Hcl 5 Mg Tablet PO 10 mg TID MITZI Administration Mirabegron 50 mg 11/26/23 09:00 11/27/23 09:02 Mirabegron 25 Mg Tab.Er.24h PO 50 mg DAILY MITZI Administration Sennosides 8.6 mg 11/26/23 09:00 11/27/23 09:03 Sennosides 8.6 Mg Tablet PO 8.6 mg DAILY MITZI Administration Tiotropium [place] 1 cap 11/26/23 09:00 11/27/23 09:02 Tiotropium [place] 18 Mcg Cap.W.Dev IH 1 cap DAILY MITZI Administration Plan Plan: 1. Right sided pneumonia - Rocephin and doxy, duonebs, solumedrol. RT consult. Legionella, mrsa, strep pneumo ordered. 2. Acute COPD exacerbation - Plan as above 3. UTI with chronic suprapubic catheter - Recent culture grew klebsiella sensitive to rocephin. Cont abx. Hold bactrim. 4. ROGELIO, stage I - Resolved. Likely due to bactrim use. Pt appears euvolemic. Hold naproxen. 5. Acute on chronic anemia - s/p 1U PRBCs on 11/25. Iron low. No black stools so far. Start iron supplement daily. 6. Orthostatic hypotension - Cont home meds 7. Hyperlipidemia - Cont home meds DVT: lovenox Dispo: [place] [facility], likely dc tomorrow Review Statement Review Statement: I have personally discussed and reviewed the patient's visit/currently labs/imaging/decision making with Dr. Kim, my supervising attending. Greater that 50 minutes spent with patient, 50% of the time spent with this patient was devoted to counseling and coordination of care.
--- NOTE | 2023-11-27 11:37 | RS.OTINEVL ---
Subjective Patient information Date of Evaluation: 11/27/23 Date of Arrival on Unit: 11/25/23 Admitted From:: Home Diagnosis: Pneumonia, UTI, AMS PRECAUTIONS: Ataxic Usual Living Arrangement: Alone Living Arrangement Comments: pt has a home health aide 6 hours a day, 5x per week. Home Environment: House Medical History: Hypertension, CVA/TIA, COPD, Arthritis and Emphysema Medical History Comments:: anxiety, aphasia, chronic suprapubic catheter, home O2, Ataxic LATEX ALLERGY?: No Medications: see chart Subjective Information/ Patient Comments:: "What are we doing?" Level of function Prior to this admission, the patient could do the following:: Independent Selfcare, Independent ADL's and Independent Ambulation Abilities prior to this admission: Pt has a caregiver 6 hours a day and 5 days a week. Pt has help with feeding, dressing, suprapubic catheter. Pt cannot drink through a straw without choking. Pt has impaired modulation, ataxia, and weakness. Current Level of Function: Partially Dependent Comments: Pt requires min A with walking with RW. Pt reports he can feed himself some but CG helps him. Pt gets liquids and foods all over him when he eats. Pt must have a divided plate, liquids in a covered cup without a straw. Current Equipment Used at Home: Rolling walker, Nebulizer, concentrator. Interventions Objective Patient Orientation: Person, Place and Situation Observation: Pt has a suprapubic catheter. Pt requires min A to ambulate with RW due to ataxia. Pt must drink from a covered cup. Interventions ROM Right Upper Extremity AROM: WFL's Left Upper Extremity AROM: WFL's Strength Right Upper Extremity: Mild Weakness Left Upper Extremity: Mild Weakness Sensation Right Upper Extremity: Impaired Left Upper Extremity: Impaired ADL Skills Grooming Grooming: Min Assist Grooming Set-up: Sitting Bathing Bathing UE: Set Up Only Bathing LE: Min Assist Bathing Set-up: Shower and Sitting Dressing Dressing UE: Min Assist Dressing LE: CGA and Min Assist Toilet Management Toilet Hygiene: Mod Assist Toilet Clothing Management: Min Assist Functional Mobility Bed Mobility Rolling R/L: Independent Scooting: Independent Supine to Sit: Independent Sit to Supine: Independent Transfers Sit to Stand: CGA Stand to Sit: CGA Stand Pivot Transfers: CGA Ambulation Weight Bearing Status: FWB Assistive Device Used: Rollator Assistance needed with Ambulation: Min Assist Safety Awareness Safety Awareness: Good STACIE INDEX SCORE: . Additional Treatment Performed Time with patient Length of Evaluation: 20 Total treatment time: 22 Activities Do you enjoy playing games?: Yes Would you be interested in leaving your room for activities?: Yes Would you enjoy group activities?: Yes Do you have difficulty with your vision?: Yes Patient Interests:: Watching Television and Visiting/Socializing Patient Education Patient Education: Education of diagnosis, Home Exercise Program, Home Safety and Education of Plan of Care Teaching Recipient: Patient Teaching Methods: Teach Back Method Used and Discussion Assessment Problem List:: Decreased level of function, Requires training/education, Decreased safety/Risk of falls and Weakness Rehab Potential: Good Further Therapy Indicated?: Yes Evaluation Complexity: HISTORY: Medium, EXAM OF BODY SYSTEMS: Medium and CLINICA L DECISION MAKING: Medium Patient's Goal(s): To be able to go back home and have CG help him. Short Term Goals Goals GOAL 1: Pt to be I with Self feeding with AD PRN. Goal to be met by: 12/02/23 GOAL 2: Pt to t/f from EOB to toilet Min A. Goal to be met by: 12/02/23 GOAL 3: Pt to increase dyn. std. bal. to Fair+. Goal to be met by: 12/02/23 GOAL 4: Pt to be CGA with RLE Dressing. Goal to be met by: 12/02/23 GOAL 5: Pt to be CGA for standing and grooming at the sink. Goal to be met by: 12/02/23 [facility] Goals GOAL 1: Pt to be I with ADLS. Goal to be met by: 12/07/23 GOAL 2: Pt to increase BUE strength to 5+/5. Goal to be met by: 12/07/23 GOAL 3: Pt to increase dyn. std. bal. to G-. Goal to be met by: 12/07/23 Plan Plan of Care: Therapeutic EX, Therapeutic Activity and Self-Care/Home Management Frequency of Treatment: 1-2 X day, as tolerated Duration of Treatment: 2 Weeks Anticipated [facility]charge Destination: [facility] Treatment Diagnosis (ICD 10 Codes): Weakness R53.1, R26.81 Balance Impaired. Has the Physician been added for Co-signature?: Yes
[2023-11-27] MEDS: FERROUS SULFATE PO SCH (11:52)
--- NOTE | 2023-11-27 12:55 | RS.OTINEVL ---
Subjective Patient information Date of Evaluation: 11/27/23 Date of Arrival on Unit: 11/25/23 Admitted From:: Home Diagnosis: Pneumonia, UTI, AMS PRECAUTIONS: Ataxic Usual Living Arrangement: Alone Living Arrangement Comments: pt has a home health aide 6 hours a day, 5x per week. Home Environment: House Medical History: Hypertension, CVA/TIA, COPD, Arthritis and Emphysema Medical History Comments:: anxiety, aphasia, chronic suprapubic catheter, home O2, Ataxic LATEX ALLERGY?: No Medications: see chart Level of function Prior to this admission, the patient could do the following:: Independent Selfcare, Independent ADL's and Independent Ambulation Current Equipment Used at Home: Rolling walker, Nebulizer, concentrator. Functional Mobility STACIE INDEX SCORE: . Additional Treatment Performed Time with patient Length of Evaluation: 19 Total treatment time: 22 Assessment Patient's Goal(s): To get therapy at the detention. Short Term Goals Goals GOAL 1: Pt to be I with Self feeding with AD PRN. Goal to be met by: 12/02/23 GOAL 2: Pt to t/f from EOB to toilet Min A. Goal to be met by: 12/02/23 GOAL 3: Pt to increase dyn. std. bal. to Fair+. Goal to be met by: 12/02/23 GOAL 4: Pt to be CGA with RLE Dressing. Goal to be met by: 12/02/23 GOAL 5: Pt to be CGA for standing and grooming at the sink. Goal to be met by: 12/02/23 [employer] Goals GOAL 1: Pt to be I with ADLS. Goal to be met by: 12/07/23 GOAL 2: Pt to increase BUE strength to 5+/5. Goal to be met by: 12/07/23 GOAL 3: Pt to increase dyn. std. bal. to G-. Goal to be met by: 12/07/23 Plan Treatment Diagnosis (ICD 10 Codes): Weakness R53.1, 74.1 Need for assistance with personal care Has the Physician been added for Co-signature?: Yes
[2023-11-28 05:37] LABS: HEMATOCRIT 28.2 % (42.0-52.0); HEMOGLOBIN 8.5 g/dl (14.0-18.0); IMMATURE GRANULOCYTE % (AUTO) 0.3 % (0.0-5.0); LYMPHOCYTES # (AUTO) 0.6 K/uL (0.60-3.4); LYMPHOCYTES % (AUTO) 5.4 (10.0-50.0); MEAN CORPUSCULAR HEMOGLOBIN 30.8 pg (27.0-31.0); MEAN CORPUSCULAR HGB CONC 30.1 (31.8-35.4); MEAN CORPUSCULAR VOLUME 102.2 fl (80.0-94.0); MONOCYTES # (AUTO) 0.3 K/uL (0.4-2.0); MONOCYTES % (AUTO) 3.1 (0-10); NEUTROPHILS # (AUTO) 9.4 K/ul (2.0-6.9); NEUTROPHILS % (AUTO) 91.2 % (42.2-75.2); PLATELET COUNT 141 10^3/uL (140-440); RDW COEFFICIENT OF VARIATION 16.7 % (11.6-14.8); RED BLOOD COUNT 2.76 10^6/ul (4.70-6.10); WHITE BLOOD COUNT 10.34 K/ul (4.2-10.2)
[2023-11-28 05:52] LABS: ALANINE AMINOTRANSFERASE 108.8 U/L (0-50); ALBUMIN 3.3 g/dL (3.5-5.0); ALKALINE PHOSPHATASE 76.6 U/L (56-119); ASPARTATE AMINO TRANSFERASE 66.1 U/L (17-59); BILIRUBIN,TOTAL 0.53 mg/dL (0.2-1.3); BLOOD UREA NITROGEN 26.8 mg/dL (9-20); CALCIUM 8.67 mg/dL (8.4-10.2); CARBON DIOXIDE 39.6 mmol/L (22-30.0); CHLORIDE 99.8 mmol/L (98-107); CREATININE 0.87 mg/dL (0.60-1.10); GLUCOSE 139.3 mg/dL (74-106); POTASSIUM 4.73 mmol/L (3.5-5.1); SODIUM 137.3 mmol/L (134.5-145); TOTAL PROTEIN 5.86 g/dL (6.3-8.2)
--- NOTE | 2023-11-28 10:32 | DCSUM ---
Admission Date Admission Date: 11/25/23 Discharge Date Discharge Date: 11/28/23 Admission Diagnosis Admission Diagnosis: 1. Left sided pneumonia 2. Acute COPD exacerbation 3. UTI with chronic suprapubic catheter 4. ROGELIO, stage I 5. Acute on chronic anemia Discharge Diagnosis Discharge Diagnosis: 1. Left sided pneumonia 2. Acute COPD exacerbation - resolved 3. UTI with chronic suprapubic catheter due to E. Faecalis 4. ROGELIO, stage I - resolved 5. Acute on chronic anemia - resolved 6. Orthostatic hypotension - chronic 7. Hyperlipidemia - chronic 8. Hx of CVA Hospital Provider Hospital [facility] Floyd [facility] Physician Primary Care Physician: APARNA RENEE Summary of History and Physical Summary of History and Physical: Patient is a 68 year old male from home with pmhx of CVA, hypertension, COPD, hyperlipidemia, recurrent UTIs, suprapubic catheter, who presented to ER with frequent falls and SOB. Per ERP patient had 6 EMS visits in the past week, 3 for lift assist and 3 to bring to ER. He was recently diagnosed with UTI in ER and given bactrim. Pt was found to have PNA on CXR. He wears 2.5L /. Hgb down from baseline. Per ERP patient is interested in [facility] as he cannot care for himself at home. Upon my evaluation this morning, patient states he feels ok. He is rather demanding to staff. Overall feeling better. Refused therapy this morning. Hospital Course Subjective: Patient was treated with rocephin and doxycyline to cover pneumonia and most recent urine culture growing klebsiella. Patient did well overall. Was more willing to work with therapy, Has been on baseline O2. ROGELIO resolved, likely due to bactrim use prior to admission. Pt appears euvolemic. He received 1U PRBCs, iron low. Started on daily iron. Urine culture grew E faecalis. Will send on 7 days of amoxicillin and 5 more days of doxycycline. His liver enzymes have been very mildly increased, recommend outpatient work up if not resolving with resolution of infection. F/u with urology outpatient. Pt agreeable to going to [facility] for [facility]. Hoping to ultimately go to an assisted living in the future. Appearance: No Apparent Distress, Alert and Other (+chronically ill, thin ) HEENT: MMM and Supple CVS: No Murmur Abdomen: Soft, Non-Tender and No Distention Respiratory: Other (+on baseline O2 requirement of 2.5L ) Extremities: No Edema Vital Signs: Most Recent Vital Signs Temperature 96.9 F L 11/28/23 05:10 Temperature Source Temporal Artery Scan 11/28/23 05:10 Temperature Source Infrared 11/25/23 18:49 Pulse Rate 80 11/28/23 08:00 Respiratory Rate 20 11/28/23 08:00 Blood Pressure 140/94 H 11/28/23 05:10 Blood Pressure Mean 109 11/28/23 05:10 Blood Pressure Right Arm 131/70 11/25/23 23:49 Blood Pressure Location Left Arm 11/28/23 05:10 Blood Pressure Position Supine 11/28/23 05:10 O2 Sat by Pulse Oximetry 99 11/28/23 09:43 Oxygen Delivery Method Nasal Cannula 11/28/23 09:43 Oxygen Flow Rate 2.5 11/28/23 09:43 Fraction of Inspired Oxygen (FIO2) 99 11/27/23 09:30 Height 5 ft 8 in 11/26/23 09:18 Weight 114 lb 3 oz 11/26/23 09:18 Telemetry Type Remote Telemetry 11/28/23 07:00 Telemetry Monitoring Continues 11/28/23 07:00 Telemetry Heart Rate 62 11/28/23 07:00 Telemetry SPO2 95 11/26/23 19:00 EKG MT Interval 0.15 11/28/23 07:00 EKG QRS Interval 0.03 L 11/28/23 07:00 Telemetry Strip Reading SR 11/28/23 07:00 Imaging: EXAM: FRONTAL VIEW OF THE CHEST. HISTORY: Cough. COMPARISON: Chest radiograph 08/09/2022. FINDINGS: Cardiac loop recorder projects over the left chest. Septal closure device noted at the heart. Normal heart size. Atherosclerotic calcifications of the aorta. Hyperexpanded lungs. Patchy opacities at the left base. No visible pleural effusion or pneumothorax. Diffuse osseous demineralization. Mild scoliosis. Degenerative changes of the shoulders. IMPRESSION: Left basilar opacities concerning for pneumonia. Emphysema. Lab Results Last 24 Hours: 11/28/23 05:01 WBC 10.34 H RBC 2.76 L Hgb 8.5 L Hct 28.2 L MCV 102.2 H MCH 30.8 MCHC 30.1 L RDW Coeff of Joycelyn 16.7 H Plt Count 141 Immature Gran % (Auto) 0.3 Neut % (Auto) 91.2 H Lymph % (Auto) 5.4 L [place] % (Auto) 3.1 Eos % (Auto) 0.0 Baso % (Auto) 0.0 Neut # (Auto) 9.4 H Lymph # (Auto) 0.6 [place] # (Auto) 0.3 L Eos # (Auto) 0.0 Baso # (Auto) 0.0 Immature Gran # (Auto) 0.0 Sodium 137.3 Potassium 4.73 Chloride 99.8 Carbon Dioxide 39.6 H Anion Gap 2.63 BUN 26.8 H Creatinine 0.87 Estimated GFR (MDRD) 87.00 BUN/Creatinine Ratio 30.80 Glucose 139.3 H Calcium 8.67 Total Bilirubin 0.53 AST 66.1 H ALT 108.8 H Alkaline Phosphatase 76.6 Total Protein 5.86 L Albumin 3.30 L Globulin 2.56 Albumin/Globulin Ratio 1.28 Discharge Instructions Discharge Planning: Discharge Planning > [address] Jana Kim. Discharge Medications: Medications at Discharge (Home Meds & RX) albuterol sulfate 90 mcg/actuation aerosol inhaler 1 inh inhalation BID PRN Shortness Of Breath 06/20/21 atorvastatin 80 mg tablet 80 mg PO DAILY 06/20/21 buspirone 5 mg tablet 5 mg PO TID 06/20/21 fluticasone fur. 100 mcg-umeclid 62.5 mcg-vilant 25 mcg inhalat.powder (Trelegy Ellipta) 1 inh inhalation DAILY 06/20/21 ipratropium 0.5 mg-albuterol 3 mg (2.5 mg base)/3 mL nebulization soln 3 ml inhalation QID 06/20/21 aspirin 81 mg chewable tablet 81 mg PO DAILY 08/09/22 fludrocortisone 0.1 mg tablet 0.1 mg PO DAILY 08/09/22 midodrine 10 mg tablet 10 mg PO TID 08/09/22 alprazolam 0.25 mg tablet 0.25 mg PO BID PRN Anxiety #60 tabs 08/11/22 sulfamethoxazole 800 mg-trimethoprim 160 mg tablet (Bactrim DS) 1 ea PO BID #14 tabs 11/21/23 cholecalciferol (vitamin D3) 25 mcg (1,000 unit) capsule 25 mcg PO DAILY 11/25/23 mirabegron 50 mg tablet,extended release 24 hr (Myrbetriq) 50 mg PO DAILY 11/25/23 naproxen 500 mg tablet 500 mg PO BID PRN pain 11/25/23 sennosides 8.6 mg-docusate sodium 50 mg tablet 1 tab-cap PO DAILY 11/25/23 Discharge Plan Discharge Discharge Orders: Discharge Patient (ONCE); Ordered 11/28/23 Ordered By: NA FLOYD Activity Restrictions/Additional Instructions: DISCHARGE TO SNF DX: PNEUMONIA, UTI DIET: NORMAL ACTIVITY: TOLERATED, PT/OT, FALL PRECAUTIONS AMOXICILLIN AND DOXYCYCLINE PRESCRIBED RECOMMEND F/U ON LIVER ENZYMES ONCE INFECTION RESOLVED, MILDLY ELEVATED Instructions: Community Acquired Pneumonia (GEN), Urinary Tract Infection in Older Adults (GEN) Care Plan Goals: Problem: Risk for falls Goal: No falls or injury Instructions: Have no throw rugs on the floor Make sure pathway is clear of all objects Use assistance devices if applicable Patient Disposition: TRANSFER SNF Prescriptions: New doxycycline hyclate 100 mg Capsule 100 mg PO Q12HR 5 Days Qty: 10 0RF ferrous sulfate 324 mg (65 mg iron) Tablet,Delayed Release (Dr/Ec) 324 mg PO DAILY Qty: 30 0RF amoxicillin 875 mg tablet 875 mg PO BID 7 Days Qty: 14 0RF Continued buspirone 5 mg tablet 5 mg PO TID atorvastatin 80 mg tablet 80 mg PO DAILY ipratropium-albuterol 0.5 mg-3 mg(2.5 mg base)/3 mL solution for nebulization 3 ml INHALATION QID albuterol sulfate 90 mcg/actuation HFA aerosol inhaler 1 inh inhalation BID PRN (Reason: Shortness Of Breath) Trelegy Ellipta 100-62.5-25 mcg blister with device 1 inh inhalation DAILY aspirin 81 mg Tablet,Chewable 81 mg PO DAILY midodrine 10 mg Tablet 10 mg PO TID fludrocortisone 0.1 mg Tablet 0.1 mg PO DAILY cholecalciferol (vitamin D3) 25 mcg (1,000 unit) capsule 25 mcg PO DAILY Myrbetriq 50 mg tablet extended release 24 hr 50 mg PO DAILY sennosides-docusate sodium 8.6-50 mg tablet 1 tab-cap PO DAILY naproxen 500 mg tablet 500 mg PO BID PRN (Reason: pain) alprazolam 0.25 mg Tablet 0.25 mg PO BID PRN (Reason: Anxiety) Qty: 15 0RF Discontinued sulfamethoxazole-trimethoprim [Bactrim DS] 800-160 mg tablet 1 ea PO BID Qty: 14 0RF Did you review [place] [employer] ASSISTANT for ALL controlled substances?: Not Applicable Discussed opioids are addictive and Narcan is available by prescription or from pharmacy.: No Condition: Stable
[2023-11-28 10:38] VITALS: BP 150/91; PULSE 73; RESP 18; TEMP 97.3
== END 2023-11-28 13:35 | DRG 190 ==
LOC: ED 18:43 → MEDSURG B 22:30
PROVIDERS: ADMIT Physician Assistant; ATTEND Hospitalist
DX: J44.1 Chronic obstructive pulmonary disease with (acute) exacerbation; M62.81 Muscle weakness (generalized); R26.81 Unsteadiness on feet; M25.521 Pain in right elbow; B96.1 Klebsiella pneumoniae [K. pneumoniae] as the cause of diseases classified elsewhere; Z74.1 Need for assistance with personal care; Z51.81 Encounter for therapeutic drug level monitoring; R29.6 Repeated falls; R06.02 Shortness of breath; I95.1 Orthostatic hypotension; J44.0 Chronic obstructive pulmonary disease with (acute) lower respiratory infection; N17.9 Acute kidney failure, unspecified; R74.01 Elevation of levels of liver transaminase levels; N39.0 Urinary tract infection, site not specified; B96.29 Other Escherichia coli [E. coli] as the cause of diseases classified elsewhere; Z79.899 Other long term (current) drug therapy; E78.5 Hyperlipidemia, unspecified; Z87.440 Personal history of urinary (tract) infections; Z96.0 Presence of urogenital implants; R26.0 Ataxic gait; Z99.81 Dependence on supplemental oxygen; J18.9 Pneumonia, unspecified organism; Z20.822 Contact with and (suspected) exposure to COVID-19; W19.XXXA Unspecified fall, initial encounter; R13.12 Dysphagia, oropharyngeal phase; Z86.73 Personal history of transient ischemic attack (TIA), and cerebral infarction without residual deficits; D64.9 Anemia, unspecified; F17.210 Nicotine dependence, cigarettes, uncomplicated